=== PATIENT | male | born 1945 | race Caucasian/White ===

== ENCOUNTER 2018-02-25 10:54 | Emergency (ER) | payer MEDICARE, OTHER ==
[~2018-02-25] VITALS: Ht 188 cm; Wt 103.8 kg
[~2018-02-25 10:54] MED LIST: AMLODIPINE BESY10 MG PO; BAYER BACK & B1 EACH PO; HYDROCODON-ACE1 EA11 PO; IRON18 MG PO; LISINOPRIL10 MG PO; METFORMIN HCL500 M1 PO; METFORMIN HCL500 MG PO; MILK OF MA400 MG/5 M PO; MIRALAX17 GM PO; OXYCODONE HCL5 MG PO; PROTONIX40 MG PO; VITAMIN C500 M1 PO
--- OUTSIDE RECORDS SUMMARY | 2018-02-25 11:00 | XMS ---
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 E.D. VISIT COUNT (12 MO.) 3 [facility] [place] TOTAL 3 NOTE: Visits indicate total known visits. ED/UCC VISIT TRACKING (12 MO.) 02/25/2018 10:55 [facility] [place] [place] TYPE: Emergency COMPLAINT: - R KNEE PAIN,INJURY 02/08/2018 00:00 [facility] [place] TYPE: Emergency COMPLAINT: - INFECTION OF BACK 02/06/2018 13:36 [facility] [place] TYPE: Emergency COMPLAINT: - SOB DIAGNOSES: - Essential (primary) hypertension - Hypoxemia - long term care pharmacist (current) use of oral hypoglycemic drugs - Type 2 diabetes mellitus without complications - Other long term care administrator (current) drug therapy - Pneumonia, unspecified organism - Shortness of breath INPATIENT VISIT TRACKING (12 MO.) 02/06/2018 19:56 Marisa YOON TYPE: Intensive Care COMPLAINT: - PNEUMONIA 01/03/2018 17:31 Marisa YONO TYPE: Medical Surgical COMPLAINT: - POST OP DISCITIS L4-L5 11/07/2017 07:56 Marisa YOON TYPE: Intensive Care COMPLAINT: - LUMBAR STENOSIS WITH SPONDYLOSIS AND RADICULOPATHY [email or web address]
[2018-02-25] MEDS ORDERED: ULTRA-LIGHT RO1 EACH MISC (12:55)
[2018-04-09] MEDS ORDERED: MAPAP500 MG PO (11:16)
== END 2018-02-25 13:20 | disposition home or self-care (01) ==
LOC: ED 10:54
DX: S83.91XA Sprain of unspecified site of right knee, initial encounter (principal); L89.321 Pressure ulcer of left buttock, stage 1; L89.311 Pressure ulcer of right buttock, stage 1; I10 Essential (primary) hypertension; E11.9 Type 2 diabetes mellitus without complications; Z79.84 Long term (current) use of oral hypoglycemic drugs; Z79.899 Other long term (current) drug therapy; X58.XXXA Exposure to other specified factors, initial encounter
CPT/HCPCS: 73560; 99283

== ENCOUNTER 2018-04-12 10:55 | Day surgery (SDC) | payer MEDICARE, OTHER ==
[~2018-04-12] VITALS: Ht 188 cm; Wt 92.1 kg
[~2018-04-12 10:55] MED LIST changes: +MAPAP500 MG PO; +ULTRA-LIGHT RO1 EACH MISC
[2018-04-12] MEDS ORDERED: GABAPENTIN300 MG PO (12:39)
[2018-04-12] MEDS ORDERED: HYDROCODON-ACE1 EA11 PO (12:39)
[2018-04-12] MEDS ORDERED: SENNA LAX8.6 MG PO (12:39)
[2018-04-12] MEDS ORDERED: INDOMETHACIN50 MG PO (12:40)
--- NOTE | 2018-04-14 08:24 | OR ---
[facility] [address] [place], [place] [address] Signed DATE OF OPERATION: SURGEON: Pavna Orellana MD PREOPERATIVE DIAGNOSIS: Lateral meniscus tear, right knee. POSTOPERATIVE DIAGNOSES: 1. Lateral meniscus tear, right knee. 2. Chondromalacia patellae. PROCEDURE PERFORMED: Right knee arthroscopy with partial lateral meniscectomy and chondral debridement, patella. MANAGER BUSINESS CONTINUITY: None. ANESTHESIA: General. BLOOD LOSS: Minimal. TOURNIQUET TIME: Zero. BRIEF HISTORY: Cliff is a 72-year-old gentleman with a fairly normal looking x-rays and MRI showed a lateral meniscus tear. He had severe pain in his knee that did not allow him to bear weight and he was using crutches. Injection, bracing, and anti-inflammatories did not work and he wished to proceed with operative debridement. Risks and benefits of this were discussed with him and he elected to proceed. DESCRIPTION OF PROCEDURE: Once consent was obtained, he was taken to the operating room. After adequate anesthesia, he was placed on the operating table. All downside pressure points were well padded. The left leg was flexed, abducted, and externally rotated on a well-padded leg ash. The right was placed in a well-padded proximal thigh tourniquet, placed in leg ash. Portal sites were pre-injected using 0.25% Marcaine with epinephrine under an alcohol prep. The leg was then prepped and draped in the standard sterile fashion Electronically Signed By: PAVAN ORELLANA MD 04/14/18 0824 PATIENT NAME: CLIFF MERCHANT OPERATIVE REPORT DATE OF : 49 REPORT #: [id number] PHYSICIAN: PAVAN ORELLANA MD PCP: GREGORIA GUARDADO REPORT IS CONFIDENTIAL AND NOT TO BE RELEASED WITHOUT AUTHORIZATION [facility] [address] [place], [place] [address] Signed and a standard inferior lateral and superior lateral portals were placed and the scope was introduced into the knee. Arthroscopic findings: Cillvsl-ig-fbre synovitis was noted throughout the knee. There were multiple large chondral flaps on the patella that were inflamed. There were several small loose bodies floating around as well. The lateral gutters were clear. ACL was intact. The PCL was intact. Medial compartment showed diffuse grade 3 chondromalacia in the anterior half of the femoral condyle. Tibia showed grade 1 to 2 changes. Lateral compartment showed no chondral changes; however, there was a horizontal tear of the meniscus at the posterior lateral corner. Standard inferior lateral portal was made after localization using a spinal needle. The meniscus tear was debrided back to a stable rim anteriorly and posteriorly and smoothed using a shaver. All debris was evacuated. Attention was then turned to the chondral flaps on the patella, which I think were causing his locking symptoms that he was complaining about. The chondral surfaces were debrided and the grasper was used to remove loose bodies from the superior pouch. The loose flaps on the patella were grounded down to a stable rim. Once this was completed, the scope was withdrawn. Portals were closed with 3-0 nylon. The knee was injected with 60 mg of Toradol at the end of the case. The wounds were dressed with Adaptic, ABD, and Luis wrap after being closed with 3-0 nylon. The patient was taken to the recovery room in satisfactory condition. All sponge, needle, and instrument counts were correct. Pavan Orellana MD BA/YUE /[id number] Copies: ~ Electronically Signed By: PAVAN ORELLANA MD 04/14/18 0824 PATIENT NAME: CLIFF MERCHANT OPERATIVE REPORT DATE OF : 49 REPORT #: [id number] PHYSICIAN: PAVAN ORELLANA MD PCP: GREGORIA GUARDADO PAC REPORT IS CONFIDENTIAL AND NOT TO BE RELEASED WITHOUT AUTHORIZATION
== END 2018-04-12 15:10 | disposition home or self-care (01) ==
LOC: DS 10:55 → OPS 10:55
PROVIDERS: Specialist
PROC: 0SBC4ZZ Excision of Right Knee Joint, Percutaneous Endoscopic Approach (ICD-10-PCS; principal; 2018-04-12 12:00)
DX: S83.281A Other tear of lateral meniscus, current injury, right knee, initial encounter (principal); M17.11 Unilateral primary osteoarthritis, right knee; M22.41 Chondromalacia patellae, right knee; M65.861 Other synovitis and tenosynovitis, right lower leg; E11.9 Type 2 diabetes mellitus without complications; I10 Essential (primary) hypertension; K21.9 Gastro-esophageal reflux disease without esophagitis; Z79.899 Other long term (current) drug therapy; Z79.84 Long term (current) use of oral hypoglycemic drugs
CPT/HCPCS: 01400; J0690; J1100; J1885; J2250; J2405; J2704; J2765; J3010; J7120

== ENCOUNTER 2020-05-07 18:56 | Emergency (ER) | payer MEDICARE ==
[~2020-05-07] VITALS: Ht 188 cm; Wt 109.8 kg
[~2020-05-07 18:56] MED LIST changes: +ASPIRIN EC325 MG PO; +DICLOFENAC SODI75 MG PO; +GABAPENTIN300 MG PO; +INDOMETHACIN50 MG PO; +MULTI VITAMIN1 EACH PO; +OSTEO BI-FLEX1 EAC2 PO; +SENNA LAX8.6 MG PO; +TYLENOL EXTRA500 MG PO; +VIT C-ROSE HIP500 MG PO; +XARELTO10 MG PO
== END 2020-05-07 20:22 | disposition home or self-care (01) ==
LOC: ED 18:56
DX: L76.22 Postprocedural hemorrhage of skin and subcutaneous tissue following other procedure (principal); I10 Essential (primary) hypertension; E11.9 Type 2 diabetes mellitus without complications; Z88.1 Allergy status to other antibiotic agents; Z79.899 Other long term (current) drug therapy; Z79.82 Long term (current) use of aspirin
CPT/HCPCS: 80053; 85025; 85610; 85730; 99283

== ENCOUNTER 2020-05-14 09:59 | Inpatient (IN) | payer MEDICARE, OTHER ==
[~2020-05-14] VITALS: Ht 188 cm; Wt 99.8 kg
--- NOTE | ~2020-05-14 | DS ---
[facility] [address] [place], [place] [address] Draft ADMISSION DATE: 05/14/2020 DISCHARGE DATE: 05/26/2020 ADMISSION DIAGNOSIS: Infected left total hip. POSTOPERATIVE DIAGNOSIS: Infected left total hip. PROCEDURE PERFORMED: 1. Irrigation and debridement with exchange of polyethylene, left total hip. 2. Placement of PICC line. BRIEF HISTORY: Mr. Merchant is a 74-year-old gentleman about a month out from his hip when he started having bleeding and drainage from his wound. This was treated nonoperatively initially, however, he continued to worsen and he showed up to the emergency room and ultimately was taken to the operating room for his hip and exchange the poly. Deep cultures did show MSSA. Blood cultures grew MSSA, however, one did grow Acinetobacter. I contacted with ID and he considered this to be a contaminant. He felt that we would treat the MSSA only. The decision was made to go ahead with IV antibiotics, ceftriaxone and rifampin. The patient will do a phone consult with Infectious Disease via video. In the meantime, he continued to have mild wound drainage and this was treated with spica dressings and PRAVIN wound VAC dressing. The drainage had decreased substantially with physical therapy, and Lasix. His leg swelling went completely away. His activity was cut to allow for the drainage to seal up and he was felt to be stable for discharge to home and follow up in my office tomorrow when he comes in for his antibiotics. Should any problems in the interim obviously he will give us a call. We will see him back tomorrow. Pavan Orellana MD BA/MODL /[id number] PATIENT NAME: CLIFF MERCHANT DISCHARGE SUMMARY DATE OF : 49 REPORT #: [id number] PHYSICIAN: PAVAN ORELLANA MD PCP: GREGORIA GUARDADO REPORT IS CONFIDENTIAL AND NOT TO BE RELEASED WITHOUT AUTHORIZATION [address] [address] Draft Copies: ~ PATIENT NAME: CLIFF MERCHANT DISCHARGE SUMMARY DATE OF : 49 REPORT #: [id number] PHYSICIAN: PAVAN ORELLANA MD PCP: GREGORIA GUARDADO REPORT IS CONFIDENTIAL AND NOT TO BE RELEASED WITHOUT AUTHORIZATION
--- OUTSIDE RECORDS SUMMARY | 2020-05-14 10:02 | XMS ---
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 Prasanna VISIT COUNT (12 MO.) 2 [facility] TOTAL 2 NOTE: Visits indicate total known visits. ED/UCC VISIT TRACKING (12 MO.) 05/14/2020 10:00 [facility] [place] TYPE: Emergency COMPLAINT: - POST SURGICAL ISSUE 05/07/2020 18:58 [facility] [place] [place] TYPE: Emergency COMPLAINT: - HIP BLEEDING AT OP INCISION DIAGNOSES: - Allergy status to other antibiotic agents - intermediate card tender (current) use of aspirin - Other keno terminal operator (current) drug therapy - Postprocedural hemorrhage of skin and subcutaneous tissue following other procedure - Type 2 diabetes mellitus without complications - Essential (primary) hypertension INPATIENT VISIT TRACKING (12 MO.) No inpatient visits to display in this time frame [id number]
--- NOTE | 2020-05-14 14:13 | NUR ---
16 TURKMEN ROMANO TEMP PROBE PLACED BY LEO NINA RN. 10 ML OF SALINE PLACED. PT HAD NO BLOOD AT THE MEATUS. PT TOLERATED THE PROCEDURE WELL. STERILE TECHNIQUE MAINTAINED.
--- NOTE | 2020-05-14 14:23 | NUR ---
05/14/20 1423 Cinthia Vásquez 1358 PATIENT ARRIVES TO PACU MOVING ALL EXTREMITIES, BUT CONFUSED. RESP INCREASED AND SLIGHTLY LABORED. AUDIBLE COARSE LUNG SOUNDS. TEMP 103.8 TEMP ON ARRIVAL TEMPORAL. OR REPORTS PATIENT IS NOT AND THAT PATIENT HAS BEEN MORE CONFUSED OVER THE LAST SEVERAL DAYS. 1400 DR BATES AND CLIFF RYAN PLASMA CUTTING MACHINE OPERATOR AT BEDSIDE. AWARE OF PATIENT TEMP. 1410 #18 GUAGE LEFT FOREARM PLACED. LAB AT BESIDE WITH BLOOD CULTURES AND LACTIC SENT WITH LAB. 1415 PATIENT ALERT TO TO SELF AND PLACE, UNABLE TO REPORT CURRENT DATE. RESP EVEN AND UNLABORED, MASK CONTINUES AT 6 LITERS. DENIES PAIN OR NAUSEA. SKIN IS STILL VERY HOT TOO TOUCH. TEMPORAL TEMP IS 103.8, CORE ROMANO TEMP IS 101.8.
--- NOTE | 2020-05-14 14:45 | EKG ---
[facility] [address] [facility] [place] [address] Signed Sinus tachycardia Right bundle branch block Abnormal ECG When compared with ECG of 25-MAR-2020 09:44, [place] interval has decreased Confirmed by KACY JAIMES MD ([id number]) on 05/14/2020 2:45:02 PM Electronically Signed By: KACY JAIMES MD 05/14/20 1445 PATIENT NAME: MAYURZULAY Electrocardiogram DATE OF : 49 PHYSICIAN: KACY JAIMES MD REPORT #: [id number] REPORT IS CONFIDENTIAL AND NOT TO BE RELEASED WITHOUT AUTHORIZATION
--- NOTE | 2020-05-14 17:04 | NUR ---
VASCULAR ACCESS NOTE: 4FR DUAL LUMEN PICC LINE PLACED IN RIGHT BASILIC. 55CM LINE, TRIMMED TO 52CM. 0CM EXPOSED. ARM CIRC 31.5CM.
--- NOTE | 2020-05-14 17:43 | NUR ---
PICC INSERTION NOTE: ASKED BY DR PEREZ TO EVALUATE PATIENT FOR POTENTIAL PICC LINEPLACEMENT DUE TO LONGTERM ABX NEEDED. AFTER REVIEWING THE CHART AND INTERVIEWING THE PATIENT/, NO ABSOLUTE CONTRAINDICATIONS WERE IDENTIFIED. PATIENT WAS ABLE TO SIGN CONSENT FORM AND ASKS QUESTIONS APPROPRIATELY PATIENT'S RIGHT ARM WAS EVALUATED USING THE SITE RITE U/S. PATIENT'S BASILIC AND BRACHIAL VEINS WERE IDENTIFIED AND THE BASILIC LOOKED TO BE A GOOD CANDIDATE. A 4 FR PICC, WAS MEASURED TO TAKE UP APPROX 30% OF VEIN, SEE PROGRESS NOTE IN PATIENT'S CHART FOR IMAGE. CDC RECOMMENDED GUIDELINES FOR STERILE PREP OF INSERTION SITE WERE THEN FOLLOWED. BASILIC VEIN WAS ACCESSED UPON THE FIRST ATTEMPT. BRISK, DARK, NONPULSATILE BLOOD WAS RETURNED. GUIDEWIRE THREADED EASILTY INTO VEINS, WELL INTRODUCER, AND PICC LINE. 0 ATTEMPTS WERE NEEDED TO ADJUST PICC, WHICH WAS PLACED USING SHERLOCK TIP GUIDE/MAGNET AND ECG MONITORING. STERILE DRESSING APPLIED AND CHEST XRAY TAKEN. TIP AT RANI. AWAITING OFFICAL RADIOLOGIST READ ON CHEST XRAY. REPORT TO FILIBERTO SAMSON. PATIENT'S GIVEN EDUCATION MATERIAL ON PICC. PATIENT AND ENCOURAGED TO ASK QUESTIONS REGARDING PICC NEEDED.
--- NOTE | 2020-05-14 18:48 | NUR ---
DR. JAIMES CALLED AND UPDATED ON PT'S LOW URINE OUTPUT. WILL CONTINUE TO MONITOR.
--- NOTE | 2020-05-14 18:59 | NUR ---
PT TO CCU AT APPROXIMATLY 1525, FULL CARE TURNED OVER TO THIS RN AT 1530, BEDSIDE REPORT GIVEN BY NEDA BALLISTICS EXPERT FORENSIC. PT IS ALERT AND ORIENTED X4, HOWEVER SLIGHTLY DROWSY POST-OP. PT SPOUSE IS AT THE BEDSIDE. NEDA RN ABLE TO PLACE A DOUBLE LUMIN PICC LINE IN PT RT ARM, CHEST X-RAY DONE IN THE ROOM TO VERIVFY PLACEMENT. ONCE COMPLETED PT TAKEN DOWN TO IMAGING FOR ABD CT, AND PELVIC X-RAY. PT ELVIS THIS WELL, SLIGHTLY DROWSY, VITALS ALL WNL. PT THEN BACK TO CCU. IV ABX STARTED, PO MEDS GIVEN, AND 1 UNIT INSULIN FOR BG 166. PT'S HAS BEEN AT THE BEDSIDE THE WHOLE TIME. PT REFUSES PAIN MEDICATION DURING THIS ENTIRE TIME, STATES "NAH, I'M DOING FINE". CRYO CUFF IN PLACE ON THE LEFT HIP. SCANT DRAINAGE NOTED ON SAMREEN WRAP OVER LEFT INCISION. SCD'S IN PLACE. PT ELVIS SIPS OF WATER.
--- NOTE | 2020-05-14 19:30 | NUR ---
REPORT RECEIVED FROM DAY SHIFT RNS. IN TO BEDSIDE TO CHECK ON PT, PT AWAKENS EASILY AND DENIES NEEDS AT THIS TIME. KRYO CUFF IN PLACE, PICA IN PLACE, IVF INFUSING.
--- NOTE | 2020-05-14 19:30 | NUR ---
REPORT RECEIVED FROM DAY SHIFT RNS. IN TO BEDSIDE TO CHECK ON PT, PT AWAKENS EASILY AND DENIES NEEDS AT THIS TIME. KRYO CUFF IN PLACE, PRAVIN IN PLACE, IVF INFUSING.
--- NOTE | 2020-05-14 20:01 | NUR ---
PT RESTING WITH EYES CLOSED, RESP EVEN UNLABORED, RR 20 SPO2 98% WITH 2L/OXYMASK IN PLACE. CURRENT TEMP PER ROMANO PROBE IS 100.7
--- NOTE | 2020-05-14 21:28 | NUR ---
TEMP HAS BEEN TRENDING UP, NOW 101.3 PER ROMANO TEMP PROBE. PRN TYLENOL GIVEN.
--- NOTE | 2020-05-15 01:05 | NUR ---
CALL TO DR JAIMES TO UPDATE REGARDING DROPPING URINE OUTPUT, 37ML LAST HOUR. ORDER GIVEN FOR 500ML LR BOLUS AND TO INCREASE IVF TO 150/HR. BOLUS STARTED PT REMAINS SLEEPING WITH RESTING HR 100'S.
--- NOTE | 2020-05-15 02:39 | NUR ---
TEMP TRENDING UP PER ROMANO TEMP PROBE, 102.1 AND 99.6 AXILLARY, PT DOES FEEL WARM, HR UP TO 120'S WITH MINIMAL MOVEMENT IN BED. TYLENOL PRN GIVEN. PT DENIES PAIN OR FEELING SOB AT THIS TIME. PT HAVING OCCASIONAL PRODUCTIVE COUGH. SCHEDULED ULTRAM GIVEN ALSO.
--- NOTE | 2020-05-15 02:50 | NUR ---
PRAVIN DRESSING SATURATED WITH DARK RED DRAINAGE AND MACHINE NOT SUCTIONING, WITH DRESSING FULL INDICATOR LIGHT FLASHING. DRESSING OVER HEMOVAC ALSO SAT. DRESSING REMOVED, INCISION WITH STITCHES INTACT WITH FLUID LEAKING OUT FROM INCISION. NEW PRAVIN DRESSING APPLIED AND MACHINE RESTARTED WITH NO PROBLEMS. PT HAD INCREASED HR DURING THIS TIME, 120'S WHILE HE WAS AWAKE AND TURNED TO HIS SIDE. URINE OUTPUT PICKED UP TO 75ML FOR THE LAST HOUR. TEMP PER ROMANO PROBE 103 AND ORAL TEMP TAKEN ALSO 103.
--- NOTE | 2020-05-15 04:10 | NUR ---
ASSESSMENT DONE, PT DENIES PAIN OR NEEDS, TAKING SIPS OF WATER. OCCASIONAL PRODUCTIVE COUGH. LUNGS MOSTLY CLEAR WITH FEW RHONCHI HEARD ON RIGHT SIDE ALSO AUDIBLE WHEEZE HEARD WHEN PTS HEARTRATE WAS IN 120'S. CMS INTACT TO LLE. ORAL TEMP NOW 101.2 AND ROMANO TEMP REMAINS 103, ICE PACKS AND COOL RAG TO FOREHEAD. URINE OUTPUT DOWN THIS HOUR STARTING VANCO INFUSION WHICH WILL BE ADDITIONAL FLUID AND PT JUST DRANK SOME WATER SO CONT TO MONITOR.
--- NOTE | 2020-05-15 06:30 | NUR ---
PT AWAKE IN BED, HELPED TO REPOSITION. PT STATES HE OCCASIONALLY HAS A PAIN IN HIS LEG. FRANCISCO ULTRAM GIVEN.
--- NOTE | 2020-05-15 07:05 | NUR ---
PT IN BED WITH EYES CLOSED, HR SUDDENLY WENT FROM 120 TO 200 FOR APPROX 18 SECONDS. IN TO CHECK ON PT, PT DENIES FEELING ANYTHING DIFFERENT, DENIES PAIN, SOB. DR JAIMES NOTIFIED. ORDER GIVEN FOR 5MG IV LOPRESSOR Q6H, FIRST DOSE GIVEN.
--- NOTE | 2020-05-15 07:15 | NUR ---
Patient HR decreases from 200-212 to the 100-110's. Patient continues to deny pain or SOB. Patient reports feeling chilly, forehead and chest warm to the touch. Parker temp of 101.9-102.3 at this time, prn tylenol given. Will continue to monitor.
--- NOTE | 2020-05-15 07:45 | NUR ---
Dr. Orellana in room to assess patient and discuss POC. Orders acknowledged to type and cross patient, administer 2 units PRBCs, and keep ahead by 2 units of PRBCs in lab.
--- NOTE | 2020-05-15 07:57 | OR ---
[facility] [address] [place], [place] [address] Signed DATE OF OPERATION: 05/14/2020 SURGEON: Pavan Orellana MD PREOPERATIVE DIAGNOSIS: Wound bleeding, left total hip replacement. POSTOPERATIVE DIAGNOSIS: Wound bleeding, left total hip replacement. PROCEDURES PERFORMED: Irrigation and debridement, left total hip replacement with exchange of poly and femoral head. ASSOCIATE PROFESSOR OF CHURCH MUSIC: Gillian Lobo PA-C. ANESTHESIA: General. BLOOD LOSS: 125 mL. IV FLUIDS: 2000. CULTURES: Deep tissue was sent for culture and deep wound cultures were taken. DRAINS: Two 10 mm drains were placed. IMPLANTS: Poly was exchanged as well as a -2.5 ceramic head. BRIEF HISTORY: Cliff is a 74-year-old gentleman who was doing well after his hip replacement, started noticing a little bit of drainage from the inferior wound about a week ago. Pressure dressings were applied and initially this healed up, however, continued to bleed and he returned to the ER today with bleeding. We were initially planning to take him back to Electronically Signed By: PAVAN ORELLANA MD 05/15/20 0757 PATIENT NAME: CLIFF MERCHANT OPERATIVE REPORT DATE OF : 49 REPORT #: [id number] PHYSICIAN: PAVAN ORELLANA MD PCP: GREGORIA GUARDADO PAC REPORT IS CONFIDENTIAL AND NOT TO BE RELEASED WITHOUT AUTHORIZATION [address] [place] [address] Signed the OR for I and D on Sunday, however, we elected to go ahead and do it today. Risks and benefits were discussed with he and his , they elected to proceed. DESCRIPTION OF PROCEDURE: Once consent was obtained, he was taken to the operating room. After adequate anesthesia he was placed on the operating table in the right lateral decubitus position. All downside pressure points well padded. An axillary roll was placed. The hip was then prepped and draped in a standard sterile fashion. The hip was opened longitudinally over the old incision and extended a little bit distally. This was taken through the skin and IT band. The fascial closure was noted to be disrupted inferiorly. The fascia was opened longitudinally all the way to the top. The wound was noted to have extensive blood clot inferiorly and anteriorly with no active bleeding currently happening. There was no evidence of any purulent material and no cellulitis. The hip was dislocated after removing the periacetabular soft tissue. The femoral head was taken off and the acetabular liner was removed. The wound was then copiously irrigated and pulse lavaged using 3 L of normal saline. All exposed metal components were then cleaned meticulously using hydrogen peroxide soaked sponges. The wound was then irrigated with dilute iodine and allowed to sit for 10 minutes. This was then once again irrigated using 3 L of normal saline. The wound was then inspected thoroughly and no significant bleeding was noted. There was a little bit of oozing from the subcutaneous tissue and the fascia layer. The remaining was quite dry. The acetabular liner was replaced and impacted until it was well-seated. The femoral head was replaced. The hip was reduced, taken through range of motion and found to be stable. The deep fascia layer was then closed using #1 PDS. We placed a 10-Chadian drain in the intracapsular. After the fascial layer was closed the IT band was closed longitudinally after placing another 10-Chadian drain below that. Care was taken not to incorporate the drain in the sutures. The subcutaneous tissue was closed with #0 Stratafix, and the skin with 2-0 nylon. The wound was dressed with a PRAVIN wound VAC dressing. He was awakened and taken to the recovery room in satisfactory condition. All sponge, needle, and instrument counts were correct. Pavan Orellana MD BA/MODL /[id number] Electronically Signed By: PAVAN ORELLANA MD 05/15/20 0757 PATIENT NAME: CLIFF MERCHANT OPERATIVE REPORT DATE OF : 49 REPORT #: [id number] PHYSICIAN: PAVAN ORELLANA MD PCP: GREGORIA GUARDADO [facility] REPORT IS CONFIDENTIAL AND NOT TO BE RELEASED WITHOUT AUTHORIZATION [facility] [address] [place], [place] [address], [place] [address] Signed Copies: ~ Electronically Signed By: PAVAN ORELLANA MD 05/15/20 0757 PATIENT NAME: CLIFF MERCHANT OPERATIVE REPORT DATE OF : 49 REPORT #: [id number] PHYSICIAN: PAVAN ORELLANA MD PCP: GREGORIA GUARDADO PAC REPORT IS CONFIDENTIAL AND NOT TO BE RELEASED WITHOUT AUTHORIZATION
--- NOTE | 2020-05-15 08:00 | NUR ---
Patient awake and alert, laying in bed. Fluids infusing at 150 mls/hr. Patient reports pain of 6/10 in left hip, which is tolerable according to patient. Vital signs taken, assessment complete. PRAVIN dressing in place with one dime-sized spot of blood noted. Hemovac in place, no drainage noted at this time. Blood clot noted in the tubing of hemovac, Dr. Orellana requests hemovac placed to low continuous wall suction. Above the PRAVIN dressing on the left hip is an allevyn pad with two bio-patches underneath. Approximately 50% of the allevyn pad is saturated with blood. Will continue to monitor. Audible wheezes are heard, patient appears to have slightly labored breathing. No accessory muscles noted, patient denies feeling SOB. 2L oxymask are in place. Ice pack and cryocuff applied to left hip. Jaswinder hose and SCDs in place. Patient denies further needs, call light within reach.
--- NOTE | 2020-05-15 08:31 | NUR ---
Patient sitting up in bed at 45 degree angle, eating breakfast assisted by nursing staff. BG of 126, no insulin given. Patient HR in the 110's with the activity of eating meal. Patient oriented to self, location, event, and date. This RN to remain in room to continue assessment.
--- NOTE | 2020-05-15 09:03 | NUR ---
Patient sitting up in bed, HR in the 110's. HR increases to 190's for approximately 5 seconds, then decreases back down to 110's. IV magnesium hung and infusing.
--- NOTE | 2020-05-15 09:30 | NUR ---
Dr. Trivedi in room to assess patient and discuss POC
--- NOTE | 2020-05-15 10:27 | NUR ---
Critical lab value called, gram positive cocci in clusters in aerobic bottle. Dr. Trivedi notified, orders acknowledged for a repeat set of blood cultures to be drawn.
--- NOTE | 2020-05-15 11:14 | NUR ---
Patient laying in bed sleeping, rouses easily to voice. Respirations even and unlabored. First unit of PRBCs administered, vital signs taken. Patient denies pain, SOB, or headache. Patient educated on importance of alerting nursing staff to changes in symptoms with administration of blood, patient agreeable. Patient falls asleep easily. sitting in chair at bedside. This RN to remain in room during initial 15 minutes of blood administration.
--- NOTE | 2020-05-15 12:53 | NUR ---
First unit of PRBCs finished infusing, post-infusion vitals taken. Patient denies pain, chills, SOB, or headache. Second unit of PRBCs administration begun. This RN in room during initial 15 minutes of infusion.
--- NOTE | 2020-05-15 14:00 | NUR ---
HR in the 100-110's. IV lopressor given. HR decreases to the 90's after administration.
--- NOTE | 2020-05-15 14:35 | NUR ---
Second unit of PRBCs finished infusing. Post-infusion set of vitals taken. Patient denies pain, SOB, chills, or headache. in room sitting in chair at bedside. PRAVIN dressing remains unchanged from previous assessment. HR in the 90's. Patient denies further needs, call light within reach.
--- NOTE | 2020-05-15 15:30 | NUR ---
Patient sleeping in bed, respirations even and unlabored. SpO2 of 100% on 2LNC, oxygen titrated to room air. SpO2 now ranging from 90-95%. Call light within reach.
--- NOTE | 2020-05-15 16:00 | NUR ---
PT in room working with patient. Nursing staff and PT assist patient up to chair with a FWW. Patient able to stand and pivot to chair. Reports pain of 6/10 in left hip after activity. Patient appears SOB after activity, after several minutes of sitting in the chair patient's breathing becomes unlabored. SpO2 of 90-94% on RA. Patient uses IS. HR in the 90-100's. 1630 - IV abx hung and infusing. sitting in room visiting with patient. Denies further needs, call light within reach.
--- NOTE | 2020-05-15 17:12 | NUR ---
Patient sitting up in chair visiting with . IV abx infusing. Ice pack in place on left hip. Call light within reach.
--- NOTE | 2020-05-15 18:30 | NUR ---
Patient returned to bed from chair with nursing staff assist and FWW. Patient able to stand and pivot to the bed. Dressing change completed due to previous dressings being saturated with blood. New PRAVIN dressing in place. Patient reports pain of 6/10 in left hip after activity, scheduled pain medication given at 1800. Hemovac in place, no drainage noted. Called Dr. Orellana to update him on dressing change and hemovac output.
--- NOTE | 2020-05-15 20:11 | NUR ---
PT SLEEPING. COLOR PINK RESP REG.
--- NOTE | 2020-05-15 21:00 | NUR ---
AWAKE, ALERT AND ORIENTED AT THIS TIME. IS MILDLY HARD OF HEARING. HR 95-98. BREATH TONES ESS CLEAR, SL UPPER AIRWAY WHEEZE IS OCC NOTED. PT RATE PAIN 5/10. PRAVIN DRSG NOTED TO HAVE LEAK, REINFORCED WITH OPSITE. SMALL AMT BLOODY DRAINAGE NOTED NEAR BOTTOM OF INCISION. CRYO CUFF LAID OVER WOUND. URINE OUTPUT IS IMPROVING.
--- NOTE | 2020-05-15 22:15 | NUR ---
PT SLEEPING OFF AND ON. PT IS LOOKING FOR HIS IPAD, THOUGHT HE HAD IT EARLIER. THIS NURSE DID SEE HIM USING HIS CELL PHONE BUT NOT IPAD FOUND.
--- NOTE | 2020-05-16 00:22 | NUR ---
PT CONT TO SLEEP OFF AND ON. PRAVIN DRSG HAS SEAL. BREATH TONES L HAVE EXP WHEEZE/RHONCHI. HAD PT USE IS AND COUGH. TURNED TO L SIDE. PT ELIVS WELL.
--- NOTE | 2020-05-16 02:27 | NUR ---
NO CHANGE IN DRSG. PAIN CONT 5/10, GIVEN SCHEDULED TRAMADOL. REPOSITIONED.
--- NOTE | 2020-05-16 04:26 | NUR ---
PT AWAKE. PAIN CONTROL SAME. REPOSITIONED AND EVLIS WELL. ALLEVYN DRSG COVERING DRAIN SITES HAS MOD AMT SEROSAN DRAINAGE AND ABD CHANGED. C/O UPSET STOMACH REQUESTING ANTACID, GIVEN MAALOX.
--- NOTE | 2020-05-16 06:13 | NUR ---
PT HAS BEEN AWAKE PAST 2 HOURS. STATES MAALOX DID HELP WITH UPSET STOMACH. L HIP DRAIN DRSG CHANGED WAS SATURATED. NOW COVERED WITH 4/4'S AND ABD. IS MOVING SELF IN BED. CATH CARE DONE.
--- NOTE | 2020-05-16 07:15 | NUR ---
Report received, orders acknowledged. Patient sleeping in bed, respirations even and unlabored. Call light within reach.
--- NOTE | 2020-05-16 08:00 | NUR ---
Patient laying in bed, awake and alert on cell phone. Patient reports pain of 4/10 in left hip, states "I feel much better today, I'm ready to sit up in the chair." Vital signs taken, assessment complete. Patient up to chair with FWW and SBA. Patient states "Wow, this feels easier than it did yesterday." Patient does not appear SOB with activity. AM medications given, water refreshed. Parker cath emptied of yellow urine. Linens changed, new gown provided. Patient uses warm cloth to wash face. Denies further needs, call light within reach.
--- NOTE | 2020-05-16 08:30 | NUR ---
GARRETT Lobo in room to assess patient and discuss POC
--- NOTE | 2020-05-16 10:06 | NUR ---
Patient sleeping in chair on RA. Patient rouses to voice easily. Scheduled pain medication given. Patient reports pain of 4/10 in left hip, which is tolerable. Denies further needs, call light within reach.
--- NOTE | 2020-05-16 11:15 | NUR ---
PT working with patient, ambulating hallway with FWW and 1PA. HR in the 90's to low 100's during activity. Patient denies increased pain in left hip with ambulation (pain of 4-5/10) or SOB. Patient returns to bed and is assisted to comfortable position with nursing staff. Patient appears SOB after reaching the bed, audible expiratory wheezes heard. After resting for a minute, patient no longer appears SOB and expiratory wheezes are not heard. Water refreshed, denies needs. Call light within reach.
--- NOTE | 2020-05-16 12:00 | NUR ---
Patient sitting up in bed. Vital signs taken, assessment complete. Medications given. PRAVIN dressing reinforced. New gauze and ABD placed over the hemovac incision sites. Lunch delivered, no further needs. Call light within reach.
--- NOTE | 2020-05-16 13:59 | NUR ---
Patient sleeping in bed, respirations even and unlabored. HR in the 80's. Call light within reach.
--- NOTE | 2020-05-16 15:09 | NUR ---
Parker catheter D/C'd. Patient up to toilet with FWW and 1PA. Large liquid BM produced and unmeasured void. Patient returns to chair. Water refreshed. Patient's in room visiting. Denies further needs, call light within reach.
--- NOTE | 2020-05-16 16:56 | NUR ---
Patient sleeping in chair, respirations even and unlabored. sitting in room with patient. Call light within reach.
--- NOTE | 2020-05-16 20:20 | NUR ---
PT SITTING IN CHAIR, IS ALERT AND ORIENTED X 3. IS COMFORTABLE. PRAVIN DRSG HAS SEAL. L HIP CONT TO HAVE SEROSAN DRAINAGE. LUIS HOSE IN PLACE. SCD OFF WHILE UP. PT INFORMED OF IMPENDING TRANSFER TO MED SURGE FLOOR.
--- NOTE | 2020-05-16 21:10 | NUR ---
pt TRANSFERRED FROM [facility]U TO [facility] ROOM 114 BY CHAIR. pt REQUESTING TO SIT UP IN CHAIR AT THIS TIME. ORIENATION TO ROOM PROVIDED. CALL LIGHT IN REACH.
--- NOTE | 2020-05-16 21:15 | NUR ---
PT TRANSFERED TO RM 114 PER CHAIR.
--- NOTE | 2020-05-16 21:55 | NUR ---
PT UP IN CHAIR, LEGS ELEVATED, ROOM AIR, NO C/O PAIN, TOLERATIANG FLUIDS WELL. L HIP PRAVIN DRESSING SATURATED WITH OLD DRAINAGE, OPSITE OVER IT. HEMOVAC IN PLACE, EDEMA TO AREA, CRYOCUFF AT BEDSIDE. GOOD CMS. 1PA/FWW. NO C/O PAIN OR EMESIS. R ARM PICC LINE INPLACE. ALERT AND ORIENTED, WATCHING TV AND READING A BOOK. FLUIDS AT BEDSIDE
--- NOTE | 2020-05-16 22:25 | NUR ---
ANSWERED CALL LIGHT FROM PRIMARY RN PACO NEEDS HELP. THIS TECHNOLOGY OFFICER WENT INTO THE ROOM. SEEN PATIENT WAS UP WITH WALKER. RN STATED PATIENT IS 1 PA TO THE BATHROOM AND WENT OUT OF THE ROOM. WHILE THIS TECHNOLOGY OFFICER WAS IN THE BATHROOM TO PUT A HAT IN TOILET, A NOISE WAS HEARD OF THE WALKER MOVING AND PATIENT WAS SEEN UNBALANCED. THIS TECHNOLOGY OFFICER RAN TO HELP PATIENT AVOID FALLING. PATIENT ABLE TO GET TO CHAIR. THIS TECHNOLOGY OFFICER CALLED FOR HELP, PRIMARY RN TO ROOM.
--- NOTE | 2020-05-16 22:31 | NUR ---
PT TRYING TO GET UP FROM CHAIR, LOST BALANCE AND SAT BACK INTO CHAIR, HEMOVAC TUBING GOT COUGHT BETWEEN HIS HANDS AND WAS ACCIDENTALLY PULLED OFF. DR BATES NOTIFIED " OK TO LEAVE IT OFF, REINFORCE DRESSING WITH ABD DRESSING, WILL REASSESS IN AM."
--- NOTE | 2020-05-16 22:50 | NUR ---
Up to bsc 3PA/FWW, voided and had a loose semiliquid bm, skin care done. L hip hemovac tubing accidentally removed by pt. skin care done, creamy scant amount of drainage noted at former hemovac insertion site. cleansed with dry gauze, clean gauze and abd pads applied, spica dressing to area. rosa dressing patent, flashing light is yellow. pt back to bed, slow to follow instructions. back to bed. priyanka hose changed, scds and clean tedhose, socks done. Bed alarm on. pt helped. slow to follow instructions from begining to edn, aware of date, month and situation
--- NOTE | 2020-05-16 23:21 | NUR ---
IN BED, HOB ELEVATED, RESTING, CALM, EYES CLOSED, NO DISTRESS, L HIP PRAVIN DRESSING AND ABD/SPICO COVRED DRESSING W/O CHAGES, CLEAN LUIS HOSE AND SCDS IN PLACE, CALL LIGHT AND FLUIDS AT BEDSIDE, RECEIVED SCHEDULED ULTRAM EARLIER. NO C/O PAIN. BED ALARM ON
--- NOTE | 2020-05-16 23:27 | NUR ---
GOWN, COMPRESSION SOCKS, NON-SKID SOCKS CHANGED. SCD'S, HEEL PROTECTOR AND CRYO CUFF ARE BACK ON. BED ALARM ON FOR SAFETY. CALL LIGHT WITHIN REACH.
--- NOTE | 2020-05-17 02:33 | NUR ---
pt awakes easily, medicated with scheduled ultram 6/10 l hip pain. L hip rosa dressing with green flashing light at this time, old drainage. abd/old hemovac site intact, no new drainage, spica dressing in place, scds, heel protectors priyanka hose and cryocuff in place. R HL PICC line, tolerating liquids well, uses urinal, medium dark yellow urine. on room air, denies CP or sob
--- NOTE | 2020-05-17 05:39 | NUR ---
PT SLEPT MOST OF THIS SHIFT, AWAKES EASILY. EARLIER ON SHIFT WHEN STANDING UP FELL BACKWARDS ONTO RECLINER CHAIR AND ACCIDENTALLY PULLED HEMOVAC TUBING OFF. SITE WITH CREAMY SEROUSANGUINEOUS DRAINAGE. DR BATES NOTIFIED AND AREA REINFORCED WITH GAUZE/ABDS AND SPICA DRESSING. OLD PRAVIN DRESSING FLASHES BETWEEN GREEN AND YELLOW LIGHT INTERMITENT. OLD PRAVIN DRESSING SATURATED WITH OLD DRAINAGE, OPSITE IN PLACE. NO NEW DRAINAGE NOTED SINCE ABD DRESSINGS APPLIED. EDEMA TO L HIP PRESENT. TAKES SCHEDULED ULTRAM AND TYLENOL, EFFECTIVE FOR PAIN CONTROL. SCDS, LUIS HOSE AND HEEL PROTECTORS IN PLACE. GOOD CMS. COOPERATIVE, UP TO BSC, WITH 2PA/FWW, GAIT UNSTEADY AND WEAK AT THAT TIME. WAS UP IN THE CHAIR AND TOLERATED WELL. HAD A BM AND VOIDING QS. USES URINAL. TOLERATING FLUIDS WELL. RAC PICC ELAINE PATENT, WILL GET VANCOMYCIN THROUGH LATER TODAY. NO C/O ADVERSE REACTION TO IV ABX. ON ROOM AIR
--- NOTE | 2020-05-17 08:30 | NUR ---
THIS RN TO ASSUME CARE OF PT
--- NOTE | 2020-05-17 09:25 | NUR ---
THIS RN IN PTS ROOM. PT UP TO CHAIR THIS AM. PT HAS SPIKA DRESSING IN PLACE WITH NOTED OLD SHADOWING ON ABDS. PT NOTES THAT PAIN IS 4/10 BUT IT TOLERABLE. PT DID REQUEST TO NOT TAKE BOWEL MEDS DUE TO FEELING "MORE REGULAR"
--- NOTE | 2020-05-17 10:05 | NUR ---
PATIENT SITTING UP IN CHAIR, VISITOR IN ROOM. VITALS AND I&O'S CHARTED. LINENS CHANGED. CALL LIGHT IN REACH. NO FURTHER NEEDS AT THIS TIME.
--- NOTE | 2020-05-17 12:00 | NUR ---
PTS BLOOD SUGAR WTIHIN NORMAL LIMINTS. NO INSULIN GIVEN
--- NOTE | 2020-05-17 13:11 | NUR ---
PT ALERT, ORIENTED AND SITTING IN CHAIR VISITING WITH FAMILY. PT INFORMED ME WHAT HAS BEEN DONE WITH HIS HIP, AND THAT HE IS ON ANTIBIOTIC REGIMEN AT THE MOMENT. NO REQUESTS, ALL QUESTIONS ASKED ANWERED. GAVE BLESSING, WILL FOLLOW
--- NOTE | 2020-05-17 14:45 | NUR ---
THIS RN IN PTS ROOM TO PASS MEDS. PT SITTING UP TO CHAIR AND PER REPORT FROM [place] AND INSPECTION OF SITE, WOUND CHANGE WAS DONE AND IS STILL CLEAN/ DRY/ INTACT. PT STATES THAT PAIN IS 5/10 BUT IS TOELRABLE
--- NOTE | 2020-05-17 15:17 | NUR ---
PRAVIN DRESSING SATURATED. DR BATES CALLED AND NOTIFIED. PURULENT DRAINAGE PRESENT. CLEANED WITH NORMAL SALINE AND GAUZE. NEW PRAVIN PLACED ON LEFT HIP. ACTICOAT OVER DRAIN HOLES. SPICA PLACED. PT TOLERAED WELL.
--- NOTE | 2020-05-17 16:45 | NUR ---
THIS RN IN PTS ROOM TO CHANGE MIDLINE DRESSING DUE TO NOTICING THAT PTS DRESSING WAS ROLLIGN UP DUE TO PT MOVING ARM. THIS RN USED STERILE TECHNIQUE AND DRESSING IS C/D/I
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
--- NOTE | 2020-05-17 18:00 | NUR ---
THIS RN IN TO PASS MEDS. PT REFUSING TO WEAR THE CRYO CUFF AT THIS TIME
--- NOTE | 2020-05-17 18:11 | NUR ---
PATIENT UP TO BATHROOM THEN TO BED, 1PA FWW. VITALS AND I&O'S CHARTED. CRYO FILLED. RN IN ROOM. CALL LIGHT IN REACH. NO FURTHER NEEDS AT THIS TIME.
--- NOTE | 2020-05-17 19:10 | NUR ---
CHARGE NURSE REPORT RECEIVED FROM DAY CHARGE.
--- NOTE | 2020-05-17 19:52 | NUR ---
REPORT RECEIVED FROM DAY SHIFT RN. PT LYING IN BED ALERT AND ORIENTED. REPORTS PAIN TOLERABLE. DRESSING TO LEFT HIP CDI. IV ABX COMPLETE. DENIES NEEDS AT THIS TIME. WHITE BOARD UPDATED. CALL LIGHT IN REACH.
--- NOTE | 2020-05-17 22:30 | NUR ---
V/S AND I&O'S COMPLETED. ICE WATER AND CRYO REFILLED.
--- NOTE | 2020-05-17 22:30 | NUR ---
EVENING ASSESSMENT COMPLETE. SCHEDULED MEDS ADMINISTERED PER EMAR. IV ABX INFUSING. PICC LINE FLUSHED PER PROTOCOL, BRISK BLOOD RETURN NOTED. SPICA DRESSING TO LEFT HIP IN PLACE, CDI. PRAVIN DRESSING IN PLACE, LIGHT FLASHING GREEN. CHON BUNCH, PT REFUSING TO WEAR SCD'S/HP/CRYO AT THIS TIME. PT REPORTS VOIDING AND DRINKNG A LOT. CBG 99. PT ALSO REPORTS MILD NAUSEA AND HAVING A "BURPY STOMACH". OFFERED PRN MAALOX, PT STATES "I'LL TRY IT LATER". DENIES FURTHER NEEDS AT THIS TIME. CALL LIGHT IN REACH.
--- NOTE | 2020-05-18 00:20 | NUR ---
ASSISTED TO THE BATHROOM USING WALKER. PRIMARY RN BROWN AND THIS RESISTOR WINDER HELPING PATIENT CLEANED UP PATIENT FROM HAVING BOWEL MOVEMENT. CHANGED BED LINEN. CHANGED GOWN. PATIENT WAS BACK IN BED. 2 RNS WERE IN THE ROOM CHANGING SPIKA DRESSING.
--- NOTE | 2020-05-18 00:45 | NUR ---
PT UP TO SIDE OF BED TO VOID. UPON RETURNING TO ROOM PT HAD BEEN INCONTINENT OF STOOL, UP TO BR WITH FWW AND 1PA TO HAVE SOFT BM. STAFF ASSIST WITH LEIGHA CARE. SPICA DRESSING CHANGED DUE TO BEING SOILED. PRAVIN DRESSING WITH LARGE AMOUNT SEROSANG DRESSING, LIGHT FLASHING GREEN. ONE SMALL BLISTER NOTED IN THE FOLD OF PTS WAIST, INTACT. LEFT THIGH NOTED TO BE REDDENED AND WARM TO TOUCH. PT BACK TO BED AT THIS TIME. SCD'S/TEDS/HP/CRYO IN PLACE. PT DENIES FURTHER NEEDS. CALL LIGHT IN REACH. BED ALARM FOR SAFETY.
--- NOTE | 2020-05-18 02:35 | NUR ---
SCHEDULED MEDS ADMINISTERED. IV ABX INFUSING PER ORDER. PICC LINE FLUSHED PER PROTOCOL. BRISK BLOOD RETURN NOTED. PT REPORTS HE IS RESTING WELL, NO NEEDS AT THIS TIME. CALL LIGHT IN REACH. BED ALARM FOR SAFETY.
--- NOTE | 2020-05-18 04:56 | NUR ---
PT RESTING IN BED WITH EYES CLOSED, NAD.
--- NOTE | 2020-05-18 05:13 | NUR ---
BED ALARM SOUNDING. PT REPOSITIONING SELF IN BED. PRAVIN "DRESSING FULL INDICATOR" LIGHT FLASHING AT THIS TIME. SPICA DRESSING REMAINS IN PLACE, NO DRAINAGE NOTED. SCD'S/TEDS/HP IN PLACE. FRESH ICE TO CRYO. PT REPORTS PAIN IS TOLERABLE. DENIES FURTHER NEEDS. BED ALARM FOR SAFETY. CALL LIGHT IN REACH.
--- NOTE | 2020-05-18 06:45 | NUR ---
SCHEDULED MEDS ADMINISTERED. IV ABX INFUSING. PT REPORTS PAIN IS TOLERABLE. NO FURTHER NEEDS. BED ALARM FOR SAFETY. CALL LIGHT IN REACH.
--- NOTE | 2020-05-18 07:21 | NUR ---
PT AWAKE AND INTERACTIVE AT TIME OF SHIFT EXCHANGE. RESTING IN BED READING DENIES NEEDS.
--- NOTE | 2020-05-18 08:21 | NUR ---
DR BATES' KICK BOXER IN TO ASSESS PT. DRESSING TO L HIP CHANGED. PT TO THE CHAIR WITH MORNING MEAL CALL LIGHT IN [place] AG[place]ES TO CALL FOR ANY NEEDS OIR TO GET UP
--- NOTE | 2020-05-18 08:45 | NUR ---
POSITIVE BLOOD CULTURE CALLED, I TOOK IT SINCE THERE WAS NO NURSE AVAILABLE. IT WAS GRAM POSITIVE COCCI IN AEROBIC BOTTLE. I CALLED KISHA AND SHE SAID ITS THE SAME THAT HES BEEN GROWING. WROTE IN LAB VALUE BOOK.
--- NOTE | 2020-05-18 09:14 | NUR ---
PATIENT IN CHAIR WATCHING TV. REFUSED TRAINING AND DEVELOPMENT DIRECTOR/BEDBATH AT THIS TIME, SAID HE GOT CLEANED UP PRETTY GOOD LAST NIGHT. AM CARE SUPPLIES PROVIDED. LINENS CHANGED. VITALS AND I&O'S CHARTED. CALL LIGHT IN REACH. NO FURTHER NEEDS AT THIS TIME.
--- NOTE | 2020-05-18 09:15 | NUR ---
CALL FROM LAB FOR CORRECTION OF POSITIVE BLOOD CULTURES. REPORTS GRAM NEGATIVE BACILLI FOR THE POSITIVE CULTURE. DR JAIMES NOTIFIED.
--- NOTE | 2020-05-18 10:26 | NUR ---
pt to xray for mri scan
--- NOTE | 2020-05-18 10:50 | NUR ---
Stopped to see Claus, he has gone for an MRI.
--- NOTE | 2020-05-18 11:45 | NUR ---
PT TAKEN TO IMAGING FOR MRI. WILL CHECK BACK
--- NOTE | 2020-05-18 12:34 | NUR ---
P/T IN TO WORK WITH PT STATES HE WILL DOING SOME MESSAGE IN AN EFFORT TO DECREASE RETAINED FLUIDS IN THE LEG AND THIS COULD CAUSE ADDITIONAL DRAINAGE. PT CONTINUES IN CHAIR LUNCH IS ORDERED
--- NOTE | 2020-05-18 12:50 | NUR ---
PT BACK FROM MRI. SITTING IN CHAIR EATING LUNCH. PT SEEMS ALERT, ORIENTED AND ENJOYING HIS LUNCH. PT SAID HE WILL HADVE TO HAVE IV PUMP AT HOME FOR 30-60 DAYS AND THAT HIS CAN HELP. HE JUST HASN'T DISCUSSED THIS WITH HER YET. THANKED ME FOR VISITING. GAVE BLESSING, WILL FOLLOW
--- NOTE | 2020-05-18 14:18 | NUR ---
PT CONTINUES UP IN THE CHAIR AFTER NOON MEAL. IS PRESENT PT VISITING ACTIVELY. DENIES DISCOMFORTS OR NEEDS AT THIS TIME.
--- NOTE | 2020-05-18 15:42 | NUR ---
Patient resting in chair visiting with family. Patient reports tolerable left hip pain, 1/10 pain level reported. Left hip dressing is intact and flashing green. Notable sarosang drainage under dressing. CMS intact. Patient reports he is tired and would like to rest for now. No needs. Personal supplies and call light within reach.
--- NOTE | 2020-05-18 18:39 | NUR ---
PATIENT TO BED FROM CHAIR, 1PA FWW, CRYO FILLED. VITALS AND I&O'S CHARTED. CALL LIGHT IN REACH. NO FRUTHER NEEDS AT THIS TIME.
--- NOTE | 2020-05-18 19:22 | NUR ---
REPORT RECEIVED FROM DAY SHIFT RN. PT LYING IN BED ALERT AND ORIENTED. PRAVIN DRESSING TO LEFT WITH MODERATE AMOUNT SEROSANG DRAINAGE. LIGHT FLASHING GREEN. PT DENIES NEEDS AT THIS TIME. WHITE BOARD UPDATED. CALL LIGHT IN REACH.
--- NOTE | 2020-05-18 22:10 | NUR ---
V/S AND I&O'S DONE. ICE WATER REFILLED. NO FURTHER NEEDS AT THIS MOMENT. URINAL EMPTIED.
--- NOTE | 2020-05-18 22:22 | NUR ---
EVENING ASSESSMENT COMPLETE. SCHEDULED MEDS ADMINISTERED PER EMAR. PICC LINE FLUSHED PER PROTOCOL, BRISK BLOOD RETURN NOTED IN BOTH LUMENS. IV ABX INFUSING PER ORDER. PRAVIN DRESSING ON LEFT HIP WITH MODERATE AMOUNT SEROSANG DRAINAGE. LIGHT FLASHING GREEN. LEFT LEG EDEMA NOTED. TEDS IN PLACE. PT REFUSING SCD'S/HP AND CRYO AT THIS TIME. REPORTS PAIN /10. SCHEDULED ULTRAM PROVIDED. DENIES NAUSEA. NO FURTHER NEEDS AT THIS TIME. CALL LIGHT IN REACH.
--- NOTE | 2020-05-18 23:10 | NUR ---
IV ABX COMPLETE. PICC LINE HEP LOCKED PER ORDER. SCD'S/TEDS/HP/CRYO IN PLACE AT THIS TIME. FRESH ICE TO CRYO. FRESH WATER PROVIDED. PT DENIES FURTHER NEEDS. BED ALARM FOR SAFETY. CALL LIGHT IN REACH.
--- NOTE | 2020-05-19 02:21 | NUR ---
SCHEDULED MEDS ADMINISTERED. IV ABX INFUSING PER ORDER. PT REPORTS HE IS RESTING COMFORTABLE. DENIES NEEDS.
--- NOTE | 2020-05-19 03:52 | NUR ---
IV ABX COMPLETE. PRAVIN DRESSING TO LEFT HIP WITH MODERATE AMOUNT SEROSANG DRAINAGE, LIGHT FLASHING GREEN. EDEMA TO LEFT LEG NOTED. CMS INTACT. SCD'S/TEDS/HP/CRYO IN PLACE. PT DENIES NEEDS. CALL LIGHT IN REACH.
--- NOTE | 2020-05-19 06:09 | NUR ---
AM LABS DRAWN THROUGH PICC LINE PER PROTOCOL. SCHEDULED MEDS ADMINISTERED. IV ABX INFUSING. PT REPORTS PAIN IS MINIMAL WHEN LYING IN BED. PRAVIN DRESSING TO LEFT HIP UNCHANGED. LIGHT FLASHING GREEN. PT REQUESTED SCD'S/HP/CRYO OFF FOR A "BREAK". TEDS IN PLACE. NO FURTHER NEEDS. CALL LIGHT IN REACH.
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
--- NOTE | 2020-05-19 11:12 | NUR ---
Patient sitting up in chair visiting with . Left hip rosa dressing unchanged; intact with sarosang drainage noted, green flashing. Patient reports tolerable pain level; 2/10. Patient tolerating diet well with good urine output. No needs. Instructed patient to call staff if he needs to get up. IV abx infusing through PICC line.
--- NOTE | 2020-05-19 13:00 | NUR ---
Notified by Ismael in pharmacy they are considering a 24 hour infusion so pt will only need to flush 1 x per day. Updated pt will not be coming into the hospital for IV antibiotics but will deliver to self with education from HH. Texted Dr Orellana I will need an full script with start and stop date. I will need in advance as it takes 1-3 days for meds and supplies to be organized and shipped to pt's home for HH to provide education. I will send rx to [facility] infusion pharmacy.
--- NOTE | 2020-05-19 13:33 | NUR ---
REPORT RECIEVED FROM CHAPIN VIRGEN.
--- NOTE | 2020-05-19 13:36 | NUR ---
CONNECTED WITH PT HE WAS AMBULATING IN MORALES WITH Gil QUEEN. PT DILIGENT, APPEARS TO BE WORKING HARD TO RECOVER/REHAB JOINT. GAVE ENCOURAGEMENT, PT ACKNOWLEDGED
--- NOTE | 2020-05-19 14:08 | NUR ---
IN TO CHECK ON PATIENT, MEDICATION PASS. LEFT HIP DRESSING IS 3/4 SATURATED, INCLUDING SOME OLD DRY AREAS, GREEN LIGHT IS FLASHING ON PRAVIN. PATIENT ENCOURAGED TO HAVE SCDS PULLED UP AND KRYO CUFF ON, PATIENT SAID, "NO, NOT RIGHT NOW." PATIENT IS SITTING UP TO CHAIR, ZOSYN ABX INFUSING.
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
--- NOTE | 2020-05-19 17:51 | NUR ---
PATIENT DID WELL WITH DINNER 100% RATES LEFT HIP PAIN 2/10, GIVEN SCHEDULED ULTRAM. VITALS ARE STABLE.
--- NOTE | 2020-05-19 19:24 | NUR ---
PATIENT RESTING QUIETLY IN BED WATCHING TV. PATIENT HAS NO CURRENT CARE NEEDS. PATIENT'S CALL LIGHT IS IN REACH.
--- NOTE | 2020-05-19 21:15 | NUR ---
PT CALLED WANTED MORE WATER. PT IN BED, STATED HE "COULDN'T FIND HIS CALL LIGHT" AND PUT SELF TO BED. THEN CALLED. EDUCATED PT IN NOT SELF TRANSFERING, AND THAT THE CALL LIGHT WAS IN THE CHAIR HE WAS SITTING IN. FRESH ICE WATER GIVEN. PRIMARY RN, ALISSA AWARE. PLAN TO USE BEDALARM
--- NOTE | 2020-05-19 21:35 | NUR ---
PATIENT IS ALERT AND ORIENTED AND VS ARE STABLE. PATIENT'S LEFT HIP DRESSING IS INTACT WITH DRY GREEN/BROWN DRAINAGE UNDER THE DRESSING. LIGHT ON PRAVIN IS FLASHING ORANGE. LUNGS ARE CLEAR AND BOWEL TONES ACTIVE. PATIENT HAVING 3/10 PAIN IN THE LEFT HIP AND 50MG TRAMADOL GIVEN WITH EVENING MEDS. PICC LINE FLUSHES WELL AND IS HEPLOCKED. PATIENT'S CRYO REFILLED WITH ICE AND PLACED ON THE LEFT HIP WITH CLOTH BARRIER. PATIENT DOES NOT WANT TO PULL UP HIS LUIS HOSE AT THIS TIME AND HAS THEM AROUND HIS FEET ONLY AND WANTS TO KEEP THEM THERE. PATIENT REFUSED EVENING STOOL SOFTENER AND WON'T USE HIS SCD'S. PAIENT HAS NO OTHER NEEDS AT THIS TIME. CALL LIGHT IN REACH.
--- NOTE | 2020-05-19 23:16 | NUR ---
PATIENT RESTING QUIETLY IN BED WATCHING TV. NO CARE NEEDS AT THIS TIME. CALL LIGHT IS IN REACH.
--- NOTE | 2020-05-19 23:51 | NUR ---
PATIENT CONTINUES TO LAY IN BED WATCHING TV. CALL LIGHT IN REACH AND NO CARE NEEDS AT THIS TIME.
--- NOTE | 2020-05-20 00:43 | NUR ---
PATIENT RESTING IN BED, TV IS NOW OFF, PATIENT'S EYES ARE CLOSED, RESPIRATIONS REGLAR AND EVEN, CALL LIGHT IS IN REACH.
--- NOTE | 2020-05-20 02:02 | NUR ---
PATIENT WAS SLEEPING UNTIL THIS RN CAME IN TO DUMP THE URINAL AND GIVE 2AM TRAMADOL. PATIENT'S LEFT HIP PAIN IS 2/10 AND TRAMADOL 5OMG GIVEN PO. URINAL DUMPED BY NAUN DIXON. PATIENT HAS NO OTHER CARE NEEDS AT THIS TIME. CALL LIGHT IS IN REACH.
--- NOTE | 2020-05-20 03:20 | NUR ---
PATIENT IN BED IN SEMI-FOWLERS POSITION, EYES CLOSED, RESPIRATIONS REGULAR AND EVEN, CALL LIGHT IS IN REACH.
--- NOTE | 2020-05-20 05:42 | NUR ---
PATIENT HAS SLEPT BETWEEN HIS DOSES OF TRAMADOL AND PATIENT HAS NOT HAD MORE THAN 3/10 OF PAIN AND IS COMFORTABLE AT A 2/10. LEFT HIP DRESSING REMAINS UNCHANGED WITH NO NEW DRAINAGE AND PRAVIN DRESSING IN PLACE STILL BLINKING ORANGE. VS REMAIN STABLE. CALL LIGHT REMAINS IN REACH AND PATIENT HAS NO OTHER CARE NEEDS AT THIS TIME. CRYO REMAINS IN PLACE ON LEFT HIP, PATIENT STILL DOSE NO WANT TO PULL UP HIS LUIS HOSE, OR USE HIS SCD'S.
--- NOTE | 2020-05-20 08:30 | NUR ---
REPORT RECEIVED FROM NIGHT RN AND PT. CARE RESUMED. PT. IS ALERT AND ORIENTED. HE AMBULATED WITH A 2PA AND FWW TO THE CHAIR. NONCOMPLIANT WITH SCDs AND LIUS PETER. LEFT LEG HAS +2 EDEMA FROM HIP TO FOOT. LT. HIP DRESSING HAS OLD SHADOWING AND PICCO FLASHING ORANGE. WILL BE CHANGED TODAY. IV FLUIDS RUNNING TKO AT 25ML/HR AND OTHER LUMEN OF PICC HEP. LOCKED. PT. LUNGS CLEAR AND BOWEL TONES ACTIVE. PT. LEFT RESTING IN CHAIR WITH CALL LIGHT IN REACH.
--- NOTE | 2020-05-20 10:00 | NUR ---
LEFT HIP DRESSING REPLACED WITH NEW PICCO WITH BATTERY PACK. OLD DRESSING SATURATED WITH SERISANGUINOUS DRAINAGE AND LEAKING WHEN DRESSING REMOVED. INCISION SITE HAS SUTURES INTACT AND NO REDDNESS. NEW PICCO FLASHING GREEN. PT. TOLERATED WELL AND LEFT RESTING IN CHAIR WITH CALL LIGHT IN REACH.
--- NOTE | 2020-05-20 11:02 | NUR ---
PATIENT IS SITTING UP IN HIS CHAIR. HE ALSO SET IN HIS CHAIR FOR BREAKFAST. PATIENT ALSO BRUSHED HIS TEETH AND WASHED HIS FACE. HE ALSO DID HIS OWN PARTIAL BATH.
--- NOTE | 2020-05-20 11:39 | NUR ---
I JUST FOUND OUT PATIENT CAN TAKE A SHOWER. HE SAID IT DENPENDS ON HOW HE FEELS AFTER PHYSICAL THERAPY THIS AFTERNOON. I DID SET UP HIS SHOWER.
--- NOTE | 2020-05-20 12:15 | NUR ---
Called and spoke with Juanita from [facility]. Notified Claus will be discharging in the near future and will need assist with IV antibiotics and PICC dressing change. She states they cannot admit over the weekend and would not admit until Sun as they only see pt on in [place]. I asked what they do if a PICC line clogs or there's an emergency and she does state they could see the pt after hours. They will not admit on Sunday if the pt discharges on Sunday and admit would be on Sun.
--- NOTE | 2020-05-20 13:54 | NUR ---
PT. SLEEPING IN THE CHAIR. PAIN TOLERABLE IN LEFT HIP AND PRESENT WHEN REPOSITIONING OR AMBULATING. IVF RUNNING TKO AND PICC LUMENS FLUSH WELL, RETURN BLOOD. PICCO DRESSING ON LEFT HIP CDI AND FLASHING GREEN. LUNGS CLEAR AND VITALS STABLE. PT. LEFT RESTING IN CHAIR WITH CALL LIGHT IN REACH.
--- NOTE | 2020-05-20 14:35 | NUR ---
PT ASLEEP, WILL CHECK BACK AGAIN
--- NOTE | 2020-05-20 19:00 | NUR ---
SHIFT REPORT RECEIVED FROM FT CHAPIN MURRAY, IN ROOM. PRAVIN DRESSING FLASHING ORANGE, SUCTION PUMP RESET, WILL MONITOR. LARGE AMOUNT SEROSANGUINEOUS SHADOWING NOTED. PER CHAPIN MURRAY, PRAVIN DRESSING CHANGED TODAY ON AND SHADOWING DEVELOPS AFTER pt GETS LEGS MASSAGED FROM PT. IV ABX INFUSING PER MD ORDERS. WILL MONITOR. NO FURTHER NEEDS, CALL LIGHT IN REACH. BOARD UPDATED.
--- NOTE | 2020-05-20 21:00 | NUR ---
PHONE CALL MADE TO PAULO SANCHEZ TO COVER AT THIS TIME. GARRETT BEARD MADE AWARE THAT CURRENT PRAVIN DRESSING IS NEARLY FULLY SATURATED WITH SEROSANGUINEOUS/YELLOW SHADOWING AND FLASHING ORANGE. TELEPHONE ORDER READ BACK TO REPALCE DRESSING, BUT LEAVE CURRENT BATTERY PACK IN PLACE. NO ADDITIONAL ORDERS.
--- NOTE | 2020-05-20 21:50 | NUR ---
IN TO GET VITALS, I&Os DONE, URINAL EMPTIED, RN IN FOR PM MEDS, CYRO ICE REFILLED, ICE WATER REFILLED, NO FURTHER NEEDS AT THIS TIME
--- NOTE | 2020-05-20 22:00 | NUR ---
ASSESSMENT COMPLETE, SCHEDULED MEDS GIVEN, SEE EMAR. BRISK BLOOD RETURN NOTED TO BOTH LUMENS FROM PICC LINE, DRESSING C/D/I, SCHEDULED ABX INFUSING PER MD ORDERS. pt REPORTS TOLERABLE 3/10 PAIN TO LEFT HIP. PRAVIN DRESSING NEARLY FULLY SATURATED, SEROSANGUINEOUS/YELLOW IN COLOR. CONTINUE TO FLASH ORANGE, WILL REPLACE PRAVIN DRESSING PER TELEPHONE ORDERS FROM GARRETT BEARD. LUIS PETER, SCD'S, AND CYRO CUFF IN PLACE. pt IN BED, DENIES FURTHER NEEDS. CALL LIGHT IN REACH.
--- NOTE | 2020-05-20 23:30 | NUR ---
PRAVIN DRESSING CHANGED PER INSTRUCTIONS, INCISION SITE WNL, NEW PRAVIN DRESSING APPLIED AND WORKING APPROPRIATELY, GREEN FLASHING LIGHT FLASHING. PRODUCTION WOOD CRAFTSMANCHAPIN SOLIS ALSO IN ROOM. CYRO CUFF REMAINS IN PLACE, NO FURTHER NEEDS AT THIS TIME, CALL LIGHT IN REACH.
--- NOTE | 2020-05-21 01:43 | NUR ---
pt RESTING QUIETLY IN BED, AWAKE. LUIS HOSE AND SCD'S REMAIN IN PLACE. IV ABX INFUSING PER MD ORDERS, SITE WNL. PRAVIN DRESSING CONTINUES TO WORK APPROPRIATELY, GREEN LIGHT FLASHING. NO NEEDS AT THIS TIME. CALL LIGHT IN REACH.
--- NOTE | 2020-05-21 02:44 | NUR ---
IV ABX COMPLETE, PICC LINE FLUSHED AND HEP LOCKED PER PROTOCOL. BLOOD RETURN NOTED TO BOTH LUMENS. SCHEDULED PAIN MEDICATION GIVEN FOR 2-3/10 GENERALIZED LEFT HIP PAIN, SEE EMAR. PRAVIN DRESSING INTACT, SMALL AMOUNT OF YELLOW/SEROSANGUINEOUS SHADOWING NOTED, GREEN LIGHT CONTINUES TO FLASH. CYRO CUFF, SCD'S AND LUIS HOSE REMAIN IN PLACE. NO FURTHER NEEDS, CALL LIGHT IN REACH.
--- NOTE | 2020-05-21 06:05 | NUR ---
IN TO GET VITALS, URINAL EMPITED, CHAIR ALARMED IN PLACE, ICE WATER FILLED, NO FURTHER NEEDS
--- NOTE | 2020-05-21 06:34 | NUR ---
SCHEDULED IV ABX AND PAIN MEDICATION GIVEN, SEE EMAR. PICC LINE WNL, BRISK BLOOD RETURN NOTED BEFORE MED ADMINISTRATION. pt REPORTS 5/10 PAIN, CAUGHT NOT USING CALL LIGHT AND GETTING OOB, EDUCATION PROVIDED. WHEN ASKED WHY HE DIDN'T CALL, pt STATES, "BECAUSE I DIDN'T". pt IN CHAIR, CHAIR ALARM IN PLACE. PRAVIN DRESSING WORKING WELL, GREEN LIGHT FLASHING. NO FURTHER NEEDS, LUIS HOSE IN PLACE. pt REFUSES CYRO CUFF. CALL LIGHT IN REACH.
--- NOTE | 2020-05-21 07:30 | NUR ---
RECEIVED REPORT AT 0700, FOUND PT IN CHAIR WATCHING TV. PT HAD NO NEEDS OR CONCERNS AT THAT TIME.
--- NOTE | 2020-05-21 08:30 | NUR ---
PT IN NEED OF CHAIR/BED ALARM. LOBES ARE CLEAR BUT DIMINISHED IN THE BASES. PT A&OX4, ABD SOUNDS ARE PRESENT, PEDIS PULSES+1, CAP REFILL <2SEC ON TOES, LEFT HIP DRESSING HAS SOME SEROUS/SANG. DRAINAGE PRESENT. NO NEED TO CHANGE DRESSING AT THIS TIME. WILL CONTINUE TO MONITOR. PT DOES PUSHES HIS LUIS-HOSE DOWN BECAUSE HE LIKES IT BETTER THAT WAY STATED BY HIM. PT ALSO NEEDS BED/CHAIR ALARM SINCE HE GETS UP WITHOUT CALLING FOR ASSISTANCE.
--- NOTE | 2020-05-21 10:00 | NUR ---
Spoke with pt and . They deny needs. Cont. to plan on dc to home with IV antibiotics x 6 weeks. [facility] will follow. Updated I had spoke with Juanita from [facility] and they would be able to admit on Sun of next week.
--- NOTE | 2020-05-21 10:24 | NUR ---
PT IN ROOM WITH VISITOR. PT HAD NO NEEDS AT THIS TIME.
--- NOTE | 2020-05-21 11:42 | NUR ---
Received Rx for Deftriaxone 2 mg IV Q day for home antibiotics with orders. Called and spoke with [facility] and faxed chart notes, face sheet, RX, medication list to [facility]. NOtified [facility] will follow this patient and pt will discharge on Sunday05/24/20.
--- NOTE | 2020-05-21 11:42 | NUR ---
Received Rx for Ceftriaxone 2 mg IV Q day for home antibiotics with orders from Dr. Orellana. Called and spoke with [facility] and faxed chart notes, face sheet, RX, medication list to [facility]. Notified [facility] will follow this patient and pt will discharge on Sunday05/24/20.
--- NOTE | 2020-05-21 11:47 | NUR ---
WAS ABOUT TO START ROCEPHIN AND NOTED THAT PT PICC-LINE WAS PULLED OUT ABOUT AN INCH OR SO. JAYESH FROM [facility] WAS CALLED.
--- NOTE | 2020-05-21 12:04 | NUR ---
CHEST X-RAY ORDERED TO SEE IF PICC IS STILL IN PLACE.
--- NOTE | 2020-05-21 12:41 | NUR ---
CHECKED ON PT-IV ALARM GOING OFF, LUNCH JUST BEING DELIVERED.PT HAD BEEN NAPPING.INFORMED CHAPIN FRENCH OF ALARM, GAVE PT A BLESSING. WILL FOLLOW
--- NOTE | 2020-05-21 13:30 | NUR ---
PICC-KENAITZE IS STILL USABLE PER CHAPIN RED AND CHEST X-RAY. PICC LINE AND AREA WERE CLEAND AND A NEW SECUREMENT DEVICE WAS ATTACHED. STERIL DRESSING CHANGE WAS DONE. BOTH LUMENS FLUSH AND HAVE BLOOD RETURN PRESNE. MD FERNANDES AND NEDA SAMSON WERE NOTIFIED.
--- NOTE | 2020-05-21 14:51 | NUR ---
DRESSING ON LEFT HIP IS UNCHANGED SINCE THIS MORNING. A SMALL AMOUNT OF SEROUS DRAINAGE IS PRESENT WITH NO CHANGE SINCE THIS MORNING. NO OTHER CHANGES WERE NOTED WITH THE SECOND ASSESSMENT.
--- NOTE | 2020-05-21 16:37 | NUR ---
CHECKED ON PATIENT ASKED PATIENT IS THERE ANYTHING THAT HE NEEDED AND HE SAID NO. VISITOR IN ROOM. PATIENT IS SITTING UP IN HIS CHAIR.
--- NOTE | 2020-05-21 18:19 | NUR ---
PT IN ROOM WITH AT BEDSIDE. BOTH LUMENS AER HEP-LOCKED. NO NEW CONCERNS NOTED.
--- NOTE | 2020-05-21 19:30 | NUR ---
SHIFT REPORT FROM NURSE FRENCH. PT UP IN CHAIR WITH IN ROOM. PT DENIES NEEDS AT THIS TIME. CALL LIGHT WITHIN REACH.
--- NOTE | 2020-05-21 21:00 | NUR ---
IN ROOM FOR EVENING MEDS AND ASSESSMENT. PT STILL IN CHAIR, EYES CLOSED THIS NURSE ENTERED ROOM. PT REPORTS HE IS "WATCHING TV". PT REFUSES STOOL SOFTENER FOR THIS EVENING. PT REPORTS "VERY LITTLE PAIN". PRAVIN FLASHING GREEN, PRAVIN DRESSING HAS SEROSANGUINOUS DRAINAGE THAT IS UNCHANGED SINCE BEGINNING OF SHIFT AND ACCORDING TO SHIFT REPORT, UNCHANGED THROUGHOUT THE DAY. CMS INTACT, VSS, PICC LINE FLUSHES WELL AND BOTH LUMENS HAVE GOOD BLOOD RETURN. ENDS OF PICC LINE WRAPPED IN COBAN TO SECURE TO PT'S ARM TO AVOID ANY DISLODGING. CALL LIGHT, URINAL AND PT'S CELL PHONE WITHIN REACH.
--- NOTE | 2020-05-21 22:27 | NUR ---
IN ROOM FOR 2199 SCHEDULED MED. PT SLEEPING IN CHAIR THIS NURSE ENTERS ROOM. PT REPORTS PAIN 2-3/10 IN LEFT HIP. PT INSISTS HE WANTS TO STAY IN CHAIR AT THIS TIME SINCE HE IS "STILL WATCHING TV". CALL LIGHT, URINAL AND PT CELL PHONE WITHIN REACH. PRAVIN FLASHING GREEN.
--- NOTE | 2020-05-22 00:16 | NUR ---
CHECKED ON PT. PT APPEARS TO BE SLEEPING WITH EYES CLOSED, EVEN BREATHING NOTED. CALL LIGHT WITHIN REACH, LIGHTS ON IN ROOM AT PT'S REQUEST.
--- NOTE | 2020-05-22 02:13 | NUR ---
IN ROOM FOR SCHEDULED MEDS. PT STILL SLEEPING IN CHAIR. REFUSES TO MOVE TO BED TO SLEEP. EDUCATED PT ON POSITION CHANGE AND BENEFITS OF SLEEPING IN BED VS CHAIR. PT REPEATS "I'M ALRIGHT". ENCOURAGED PT TO TRY SLEEPING IN BED FROM NOW UNTIL 0600. PT ALLOWED THIS NURSE TO CHECK PRAVIN DRESSING WHICH IS UNCHANGED FROM BEGINNING OF SHIFT; PRAVIN DEVICE BLINKING GREEN. ENCOURAGED PT ONCE AGAIN TO MOVE OVER TO BED; PT STATES THAT HE SLEEPS IN A RECLINER CHAIR AT HOME AND THEN PT ASKS THIS NURSE POLITELY TO LEAVE THE ROOM. CALL LIGHT WITHIN REACH, URINAL EMPTIED AND PLACED WITHIN REACH.
--- NOTE | 2020-05-22 03:34 | NUR ---
CALL LIGHT ANSWERED. SBA FROM CHAIR TO BED. PT AGREES TO SCD'S BUT DECLINES CRYO UNIT. PRAVIN FLASHING GREEN. FRESH WATER SUPPLIED, URINAL EMPTIED. CALL LIGHT, URINAL AND PT'S CELL PHONE PLACED WITHIN REACH. NO FURTHER NEEDS AT THIS TIME.
--- NOTE | 2020-05-22 06:05 | NUR ---
CALL LIGHT ANSWERED. PT UP TO TOILET FOR BM. SBA FWW. PRAVIN FLASHING GREEN. SLIGHTLY LARGER AREA OF SEROSANGUINOS DISCHARGE ON PRAVIN DRESSING, OTHERWISE INTACT. ASSESSMENT COMPLETED ALONG WITH VITALS, I&OS, SCHEDULED MEDS. CALL LIGHT WITHIN REACH.
--- NOTE | 2020-05-22 08:00 | NUR ---
RECEIVED REPORT AT 0700, PT IN BED AWAKE. NO NEW CONCERNS NOTED AT THIS TIME.
--- NOTE | 2020-05-22 10:00 | NUR ---
ALL LOBES HAVE SOME EXPIRAT. WHEEZING PRESENT. PT DENIES SOB. PICCO DRESSING ON LEFT HIP HAS A BIT MORE DRAINAGE PRESENT. NO OTHER NEW CONCERNS WERE NOTED WITH FIRST ASSESSMENT.
--- NOTE | 2020-05-22 13:00 | NUR ---
IN ROOM. PT HAS SHOWERED AND IS SITTING IN CHAIR. PT STATED THAT HE WILL USE THE CALL HORTA AND NOT GET UP ON HIS OWN. NO NEW CONCERNS NOTED AT THIS TIME.
--- NOTE | 2020-05-22 15:00 | NUR ---
PT IN ROOM WITH AT BEDSIDE. PT IN CHAIR AT THIS TIME. NO NEW CONCERNS NOTED.
--- NOTE | 2020-05-22 16:34 | NUR ---
PICCO DRESSING AT THIS TIME IS SATURADED AGAIN WITH SEROUSANG. FLUID. WILL CALL PA WITH UPDATE. NEW PICCO DRESSING TO BE APPLIED SHORTLY.
--- NOTE | 2020-05-22 18:27 | NUR ---
PT IN ROOM. WILL CONTINUE TO MONITOR DRESSING.
--- NOTE | 2020-05-22 18:31 | NUR ---
PICCO DRESSING AT THIS TIME HAS ABOUT A 4CM SEROUSANG. NONDALTON PRESENT. PICCO PUMP IS WORKING.
--- NOTE | 2020-05-22 19:10 | NUR ---
IN ROOM FOR REPORT, PT IS AWAKE IN THE CHAIR. HE DENIES NEEDS AT THIS TIME. CALL LIGHT IS CLOSE.
--- NOTE | 2020-05-22 20:23 | NUR ---
IN ROOM TO ASSESS PT AND ADMISTERED MEDICATIONS. PT RATES PAIN IN L HIP AT 3/10-ADMINISTERED TYLENOL. PT REFUSED SENOKOT AND CRYOCUFF/SCDS AT THIS TIME. EMPTIED URNIAL AND PT HAS FRESH ICEWATER AT BEDSIDE. PICC LINE IS ALREADY HEPLOCKED. PT DENIES FURTHER NEEDS AT THIS TIME. HE IS WATCHING TV IN THE RECLINER, CALL LIGHT IS CLOSE AND PT STATES HE WILL NOT GET UP ON HIS OWN BUT HE WILL CALL IF HE NEEDS TO GET UP.
--- NOTE | 2020-05-22 22:24 | NUR ---
IN ROOM TO ADMINISTER ULTRAM 2/10 PAIN. ASSISTED PT TO TH RESTROOM AND BACK TO BED. SCDS ARE ON BUT PT REFUSES CRYOCUFF. VS AND I&O'S ENTERED AND PT DENIES FURTHER NEEDS. CALL LIGHT IS CLOSE.
--- NOTE | 2020-05-23 00:27 | NUR ---
PT IS RESTING WITH EYES CLOSED, RR IS EVEN AND NONLABORED. CALL LIGHT IS CLOSE.
--- NOTE | 2020-05-23 01:20 | NUR ---
SHIFT REPORT RECEIVED FROM CHAPIN SOLIS, QUESTIONS ANSWERED. THIS RN TO RESUME CARE AT THIS TIME. pt RESTING IN BED WITH EYES CLOSED, RR EVEN AND UNLABORED. CALL LIGHT IN REACH.
--- NOTE | 2020-05-23 02:30 | NUR ---
ASSESSMENT COMPLETE, pt REPORTS 2-3/10 PAIN IN LEFT HIP. PRAVIN DRESSING INTACT, GREEN LIGHT FLASHING. PER REPORT FROM CHAPIN SOLIS, NO SIGNS OF NEW SHADOWING, WILL MONITOR. PICC LINE DRESSING INTACT, BRISK BLOOD RETURN NOTED, BOTH LUMENS SALINE FLUSHED AND HEP LOCKED PER POLICY. LUIS HOSE AND SCD'S IN PLACE. NO FURTHER NEEDS, CALL LIGHT IN REACH.
--- NOTE | 2020-05-23 03:45 | NUR ---
CALL LIGHT ANSWERED, pt UP SBA WITH FWW TO VOID AND HAVE BM. pt TOLERATED WELL AND STEADY ON FEET, RETURNED TO BED. SCD'S AND LUIS HOSE REMAIN IN PLACE. PRAVIN DRESSING UNCHANGED, GREEN LIGHT FLASHING. NO FURTHER NEEDS, pt WATCHING TV. CALL LIGHT IN REACH.
--- NOTE | 2020-05-23 06:16 | NUR ---
VS AND I&O'S COMPLETE, FRESH WATER GIVEN. SCHEDULED PAIN MED GIVEN FOR 1-2/10 PAIN, SEE EMAR. NO FURTHER NEEDS. CALL LIGHT IN REACH.
--- NOTE | 2020-05-23 07:20 | NUR ---
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 pts incision site draining yellow fluid, in moderate amounts since starting to work on his physical therapies. pt has had therapies stopped for the time being, pt able to get up to the chair and is SBA+FWW. pt currently in bed, breathing even and unlabored, table and call light within reach.
--- NOTE | 2020-05-23 09:00 | NUR ---
ASSESSMENT + MED PASS pt assessment completed at this time, VSS, pts got generalized edema from his hips down, slightly dim lung bases, and the PRAVIN dressing is intact, but is about half filled with yellow drainage, green light on PRAVIN device still on. pt up to chair at this time, watching TV with at chair side. pt reports 3/10 tolerable pain at this time. pt able to take all meds without difficulty. pt given coffee and fresh water at this time. pt denies further needs. table and call light within reach.
--- NOTE | 2020-05-23 10:00 | NUR ---
MED PASS + HEPARIN LOCK pt was getting his IV ABX after med pass this morning, now infusion is complete, PICC line assessed and heparin locked at this time. pt getting his scheduled tramadol now, able to take it without difficulty. pt also given his IV lasix as ordered by his P.A. pt denies further needs at this time. table and call light within reach.
--- NOTE | 2020-05-23 11:00 | NUR ---
RESPONDING TO CALL LIGHT pts urinal emptied at this time, pt was able to void 300mls of slightly orange urine. urine color could be due to the Rifampin. pt in chair, denies further needs at this time. table and call light within reach.
--- NOTE | 2020-05-23 11:58 | NUR ---
RESPONDING TO CALL LIGHT pts urinal emptied at this time, pt was able to void 700mls of slightly orange urine. urine color could be due to the Rifampin. pt in chair, denies further needs at this time. table and call light within reach.
--- NOTE | 2020-05-23 12:25 | NUR ---
ROUNDING pts urinal emptied. pt denies nausea and reports 3/10 tolerable pain at this time. pt having lunch and visiting with his while watching tv. pts dressing is still intact and PRAVIN device still flashing green light. dressing is about 2/3 saturated with yellow drainage at this time. pt denies further needs at this time, table and call light within reach.
--- NOTE | 2020-05-23 13:05 | NUR ---
ROUNDING pts urinal emptied. pt denies nausea and reports 3/10 tolerable pain at this time. pt still up to chair. pt encouraged to stand and move legs at the chair side with me present to help, pt refused. pt encouraged to use another pillow under him, pt refused. pts dressing is still intact and PRAVIN device still flashing green light. dressing is about 2/3 saturated with yellow drainage at this time. pt denies further needs at this time, table and call light within reach.
--- NOTE | 2020-05-23 13:15 | NUR ---
ROUNDING emptied pts urinal at this time. pt encouraged to stand and reposition, pt refused at this time. pt denies pain and nausea at this time. pt able to demonstrate proper use of the I.S. to 1400 x10 at this time. pt denies further needs. table and call light within reach.
--- NOTE | 2020-05-23 14:15 | NUR ---
ROUNDING emptied pts urinal at this time. pt encouraged to stand and reposition, pt refused at this time. pt denies pain and nausea at this time. pt denies further needs. table and call light within reach.
--- NOTE | 2020-05-23 15:00 | NUR ---
ROUNDING pts urinal emptied. pt denies nausea and reports 2/10 tolerable pain at this time. pt having lunch and visiting with his while watching tv. pts dressing is still intact though PRAVIN device is now flashing orange light. dressing is about 2/3 saturated with yellow drainage at this time. this RN to change PRAVIN dressing as soon as a replacement dressing is brought to the unit.pt denies further needs at this time, table and call light within reach.
--- NOTE | 2020-05-23 16:01 | NUR ---
PRAVIN DRESSING CHANGE pts PRAVIN device flashing orange light at this time. pts dressing still about 2/3 saturated with yellow/serous fluid. pt tolerated well, denies pain. pt able to demonstrate proper use of the I.S. to 1400 x10 at this time. pt up to the bathroom to void and have BM. pt back to chair. pt was able to walk from chair to bed, to toilet, to chair using SBA + FWW. pt in chair, reports 2/10 pain, no nausea, and no further needs at this time. table and call light within reach. at bedside.
--- NOTE | 2020-05-23 16:26 | NUR ---
pt PICC line heparin locked in both lumens at this time. pt has PICC line wrapped in a sleeve and coband to keep it from snagging or being pulled, pt had the PICC line pulled out a few days ago. currently lines are drawing back blood and flushing with ease. pt had PRAVIN dressing changed today at 1600, new dressing and new device with new batteries. pt was given 40mg lasix today to diurese some of the fluid from his lung bases and lower extremities (according to Dr Orellana' P.A.). pt has voided over 2000mls since this morning. pt tolerating a 60gCC diet well. pt A&O x4, pleasant and cooperative throughout my shift.
--- NOTE | 2020-05-23 17:00 | NUR ---
ROUNDING pt in chair, watching TV at this time. pt reports 2/10 tolerable pain, no nausea at this time. pt denies needs. table and call light within reach.
--- NOTE | 2020-05-23 18:00 | NUR ---
VITALS & Is&Os pts VSS. Is&Os recorded. pt reports 2/10 tolerable pain and no nausea at this time. table and call light within reach.
--- NOTE | 2020-05-23 19:36 | NUR ---
SHIFT REPORT FROM NURSE GOMEZ. PT IS UP IN CHAIR, ON CELL PHONE, WATCHING TV. DENIES NEEDS AT THIS TIME. CALL LIGHT WITHIN REACH.
--- NOTE | 2020-05-23 20:30 | NUR ---
CALL LIGHT ANSWERED. 1 PA TO THE BATHROOM FROM CHAIR. WALKER USED. PATIENT IS IN BED NOW. V/S AND I&O TAKEN AND RECORDED. NO OTHER NEED AT THIS TIME. CALL LIGHT AND SIDE TABLE WITHIN REACH.
--- NOTE | 2020-05-23 21:49 | NUR ---
CHARGE NOTE. pt AWAKE AND RESTING IN BED, PRIMARY RN AMANDA IN ROOM. pt APPEARS COMFORTABLE AND DENIES NEEDS OR CONCERNS, CALL LIGHT IN REACH.
--- NOTE | 2020-05-23 22:00 | NUR ---
IN ROOM FOR EVENING MEDS AND ASSESSMENT. PT LAYING IN BED WATCHING TV. PT REPORTS "DISCOMFORT" RATHER THAN PAIN SO CANNOT RATE. LEFT HIP EDEMA CONTINUES TO LEFT KNEE. PRAVIN DRESSING HALF SATURATED WITH SEROSANGUINOUS DRAINAGE. PRAVIN PUMP FLASHING GREEN. CMS INTACT. LUNG SOUNDS CLEAR AT THIS TIME. SCDS APPLIED; PT REFUSES CRYO UNIT. PT HAS QUESTIONS RE: PO ANTIBIOTICS/ HOME CARE WHICH ARE ANSWERED AT THIS TIME. PICC LINE FLUSHES EASILY AND BOTH LUMENS HAVE GOOD BLOOD RETURN. NO FURTHER CARE NEEDS AT THIS TIME. CALL LIGHT WITHIN REACH.
--- NOTE | 2020-05-24 00:25 | NUR ---
CHECKED ON PT. PT APPEARS TO BE SLEEPING WITH EYES CLOSED, EVEN BREATHING NOTED. CALL LIGHT, BEDSIDE TABLE AND URINAL WITHIN REACH. SCDS ON.
--- NOTE | 2020-05-24 03:02 | NUR ---
CHECKED ON PT. PT SLEEPING IN BED WITH EYES CLOSED, EVEN BREATHING NOTED. NO APPARENT SIGNS OF DISTRESS. CALL LIGHT WITHIN REACH.
--- NOTE | 2020-05-24 06:34 | NUR ---
IN ROOM FOR MORNING ASSESSMENT AND VITALS. PT IS AWAKE AND READING ON HIS PHONE. PT REPORTS NO PAIN AT THIS TIME. SCHEDULED MEDS GIVEN. PRAVIN DRESSING NEARLY ALL SATURATED WITH YELLOWISH, SEROSANGUINOUS FLUID. PRAVIN PUMP FLASHING ORANGE. VSS. URINE OUTPUT QS. LEFT HIP TO KNEE STILL EDEMATOUS WITH SOME PITTING BEHIND L KNEE NOTED. WILL CHECK IN WITH DR BATES/DAVE RE: DRESSING CHANGE AND IF THEY WOULD LIKE TO SEE INCISION AREA DURING DRESSING CHANGE. NO FURTHER NEEDS AT THIS TIME. CALL LIGHT WITHIN REACH.
--- NOTE | 2020-05-24 09:00 | NUR ---
Patient sitting up in chair, alert and oriented x3. Patient reports left hip/leg pain is minimal; reports 2/10 on pain scale. PRAVIN dressing is intact, moderate drainage noted to dressing; yellow/green in color. PRAVIN is flashing orange at this time. Per report, provider notified this morning of dressing. Order to leave dressing as is so the provider can assess this afternoon when they see patient. CMS intact. PICC line intact, hep locked at this time. No needs. Call light within reach.
--- NOTE | 2020-05-24 10:00 | NUR ---
SPOKE WITH PATIENT IN ROOM. HE STATES HE DOES NOT KNOW IF HE IS GOING HOME TODAY. "I KEEP LEAKING". DISCUSSED PLAN FOR HOME INFUSION AND HOME HEALTH. DISCUSSED NOTES REFLECT THAT HOME HEALTH WILL ADMIT HIM ON SUNDAY. ASKED IF HE HAS HAD TEACHING ON FLUSHING PICC LINE, WHAT TO WATCH FOR AT HOME AND WHO TO CONTACT. HE STATES HE HAS WATCHED THEM FLUSH IT BUT HASN'T HAD TEACHING DIRECTLY. DISCUSSED THAT WE NEED TO MAKE SURE HE HAS ALL THIS BEFORE DISCHARGE. ASKED IF ANY PACKAGES HAVE BEEN DELIVERED AT HOME FROM [facility] YET. HE STATES HE WILL CHECK WITH HIS . SPOKE WITH CHARGE NURSE ABOUT TEACHING NEEDING DONE FOR PATIENT BEFORE DISCHARGE.
--- NOTE | 2020-05-24 11:10 | NUR ---
SPOKE WITH [facility]. THEY COULD NOT FIND ORDERS FAXED ON SUNDAY. CONFIRMED FAX NUMBER [phone]. REFAXED ORDER,CLINICALS. FAX CONFIRMATION RECEIVED 05/24/20 [id number].
--- NOTE | 2020-05-24 14:31 | NUR ---
PT WAS RESTING IN CHAIR, ON COUCH BESIDE PT. HE COMMENTED THAT HE IS WAITING FOR DR BATES. FLOYD SLAUGHTER, WILL FOLLOW
--- NOTE | 2020-05-24 14:38 | NUR ---
RECEIVED MESSAGE FROM [facility] TO CALL BACK [phone]. RETURNED CALL. SPOKE WITH STEPHANIE. SHE STATES THEY RECEIVED ORDER. SHE STATES THEY RAN HIS INSURANCE AND HE WOULD HAVE A COPAY OF $878/WEEK. SHE STATES OUTPATIENT INFUSION WOULD BE COVERED, BUT HOME INFUSION HAS THE COPAY. TOLD HER NOT TO SEND ANYTHING UNTIL I SPEAK WITH PATIENT. SPOKE WITH PATIENT IN ROOM, IS PRESENT. DISCUSSED PHONE CALL ABOVE. THEY STATE THIS MIGHT BE A PROBLEM. THEY WANT TO THINK ABOUT THIS, STATES "I NEED TO RETHINK COMING IN DAILY". DISCUSSED TO LET US KNOW THIS AFTERNOON OR EARLY IN AM. UPDATED STAFF.
--- NOTE | 2020-05-24 15:19 | NUR ---
PATIENT IN BED RESTING, IN ROOM. VITALS AND I&O'S CHARTED. CALL LIGHT IN REACH. NO FURTHER NEEDS AT THIS TIME.
--- NOTE | 2020-05-24 15:59 | NUR ---
CONSULT RECEIVED. PATIENT STATES HIS APPETITE IS [employer]. I ASKED HIM IF HE COULD TELL ME SOME PROTEIN FOODS AND HE SAID NO, HE WANTED ME TO TELL HIM. EXPLAINED WHAT FOODS CONTAIN PROTEIN. HE HAD A HAM & CHEESE OMLET THIS AM, SOUP FOR LUNCH, AND WILL HAVE AN OPEN-FACED TURKEY SANDWICH FOR DINNER. HE SAID AT THE [facility] THEY SENT HIM A DRINK AT EACH MEAL (BOOST) AND HE IS FINE WITH US SENDING THE LOWER SUGAR ENSURE WITH MEALS WHILE HE IS HERE. ESTIMATED PROTEIN NEEDS: 1.0-1.2 GM/KG CBW = 99-120 GM PROTEIN PER DAY. WILL CONTINUE TO MONITOR.
--- NOTE | 2020-05-24 18:56 | NUR ---
Patient reports doing well, a&ox4. Patient reports minimal left leg/hip pain, /. Spica dressing remains CDI. CMS intact. LUIS hose and scd's in place. Patient remains on bedrest. Call light within reach.
--- NOTE | 2020-05-24 19:32 | NUR ---
SHIFT REPORT FROM NURSE VIRGEN. PT SLEEPING ON BACK IN BED,NO APPARENT SIGNS OF DISTRESS. WHITE BOARD UPDATED. CALL LIGHT WITHIN REACH.
--- NOTE | 2020-05-24 22:15 | NUR ---
IN ROOM FOR MEDS AND ASSESSMENT. PT REPORTS NO PAIN, SPICA CDI; NO DRAINAGE NOTED. SCDS ON, PT ENCOURAGED TO USE I.S. SINCE LESS MOBILE D/T BED REST ORDERS. URINE OUTPUT CONTINUES TO BE STRONG, 2 URINALS AT BEDSIDE. PICC LINE FLUSHES WELL AND BOTH LUMENS HAVE GOOD BLOOD RETURN. WATER CUP REFILLED PER REQUEST. NO FURTHER NEEDS AT THIS TIME. CALL LIGHT WITHIN REACH.
--- NOTE | 2020-05-25 01:00 | NUR ---
BED ALARM ALARMING. PT HAD TURNED TO RIGHT SIDE AND MOTION SET OFF. PT DENIES NEEDS AT THIS TIME. CALL LIGHT WITHIN REACH.
--- NOTE | 2020-05-25 03:01 | NUR ---
CHECKED IN ON PT; EMPTIED URINALS. SPICA BANDAGE CHECKED; CDI. SCHEDULED TRAMADOL ADMINISTERED. NO FURTHER NEEDS AT THIS TIME. CALL LIGHT WITHIN REACH, BED ALARM ON.
--- NOTE | 2020-05-25 06:22 | NUR ---
IN ROOM FOR MORNING ASSESSMENT, VITALS, BLOODDRAW. PT AWAKE AND ALERT. SPICA DRESSING REMAINS CDI. NO DRAINAGE NOTED. PT REPORTS PAIN IN KNEES AND SCHEDULED TYLENOL IS ADMINISTERED. VSS. CMS INTACT. LUNGS DIM BUT CLEAR; ENCOURAGED I.S. BOWEL TONES ACTIVE. WATER REFILLED. MORNING LABS DRAWN EASILY OUT OF PICC LINE. FLUSHED WITH 10ML NS. CALL LIGHT WITHIN REACH. NO FURTHER NEEDS AT THIS TIME.
--- NOTE | 2020-05-25 06:35 | NUR ---
BED ALARM SOUNDING, PT FOUND SITTING ON EDGE OF BED. STATES HE CAN'T GET UP, JUST WANTED TO SIT UP FOR BIT. CALL LIGHT WITHIN REACH. NO NEEDS.
--- NOTE | 2020-05-25 07:25 | NUR ---
Patient resting in bed, alert and oriented x3. Spica dressing CDI at this time. LLE has notable edema, LUIS hose and SCD's intact. Patient reports pain is tolerable, 2/10 pain level reported. Call light within reach. No needs at this time.
--- NOTE | 2020-05-25 09:05 | NUR ---
Patient reported his left inner thigh was feeling really tight. Dr. Orellana at bedside at this time. Verbal order obtained to cut inner left thight dressing then place florentin wrap over. Left inner thigh dressing cut then florentin wrap placed at this time. ABD under pica was noted to be saturated and coming out of spica dressing. Removed saturated abd and replaced with new one. Drainage on abd is serous without notable smell. Spica is otherwise intact and functioning well. CMS intact. Patient tolerated well.
--- NOTE | 2020-05-25 10:04 | NUR ---
PATIENT IN BED RESTING, AT BEDSIDE. VITALS AND I&O'S CHARTED. FRESH WATER GIVEN. CALL LIGHT IN REACH. NO FURTHER NEEDS AT THIS TIME.
--- NOTE | 2020-05-25 10:10 | NUR ---
Spoke with Claus. He is resting in bed and is aware he is to stay in bed, except to go to the bathroom. Discussed IV antibiotics and he now plans to come in as OP daily as there was a large copay for home IV med. Pt is anxious to discharge as his son and grandchild are visiting from [place]. They will be leaving in a few days. Pt denies other needs. Will fax orders to [facility] when pt is ready for dc, for IV antibiotics and schedule.
--- NOTE | 2020-05-25 10:20 | NUR ---
Spoke with Elijah. He plans on dc to home when he is discharged. He has worked with our CHW, Ursula Maria in the past and would like her to call him. He would like some help in the home and informed I can give him a brochure for [employer]. We discussed all help is paid out of pocket, he is aware of this. States he needs some light housekeeping only. We also discussed [employer], but this program is not currently running.
--- NOTE | 2020-05-25 12:35 | NUR ---
Patient in bed resting at this time, a&ox4. Patient reports his pain is tolerable at this time. SPICA dressing CDI at this time. CMS intact, priyanka hose and scd's in place. Patient has no reported need. at bedside visiting. Call light within reach.
--- NOTE | 2020-05-25 14:33 | NUR ---
PT SITTING UP IN BED, TV ON AND TALKING ON PHONE. PT REQUESTED I COME BACK LATER. WILL FOLLOW NEEDED
--- NOTE | 2020-05-25 18:08 | NUR ---
PATIENT IN BED RESTING. FRESH WATER GIVEN. VITALS AND I&O'S CHARTED. CALL LIGHT IN REACH. NO FURTHER NEEDS AT THIS TIME.
--- NOTE | 2020-05-25 18:35 | NUR ---
Patient resting in bed, a&ox3. Respirations even and non labored. ABD replaced under spica dressing to left hip. Drainage serous, no smell noted. SPICA intact, small amound of serous shadowing to small portion of abdominal binder. CMS intact. Patient reports good pain tolerance. SCD'S and priyanka hose intact.
--- NOTE | 2020-05-25 19:21 | NUR ---
RECEIVED REPORT FROM DAY SHIFT RN. PATIENT IS RESTING IN BED WATCHING TV. PATIENT DENIES ANY PAIN. NO NEEDS NOTED. CALL LIGHT IN REACH.
--- NOTE | 2020-05-25 21:30 | NUR ---
PATIENT ASSESMENT COMPLETED. PATIENTS VITALS TAKEN AND RECORDED. INTAKE AND OUPUT RECORDED. PATIENT RATES PAIN AT A 2/10. PATIENT GIVEN SCHEDULED PAIN MEDICATION. PATIENTS EVENING MEDICATIONS GIVEN PER ORDER. PATIENTS PICC LINE HEP LOCKED. PATIENTS DRESSING REINFORCED IT HAD SLID UP ABOVE HIS NAVEL. PATIENTS DRESSING HAS A SMALL AMOUNT OF CLEAR DRAINAGE NOTED. PATIENTS ICE WATER REFILLED. NO FURTHER NEEDS NOTED. CALL LIGHT AND BELONGINGS WITHIN REACH.
--- NOTE | 2020-05-25 23:07 | NUR ---
PATIENT IS RESTING IN BED WITH EYES CLOSED, RR 17. CALL LIGHT IN REACH. SCDS IN USE.
--- NOTE | 2020-05-26 01:05 | NUR ---
PATIENT IS RESTING IN BED WITH HIS EYES CLOSED, RR 17. CALL LIGHT IN REACH.
--- NOTE | 2020-05-26 02:55 | NUR ---
PATIENT IS RESTING IN BED WITH EYES CLOSED, RR 18. PATIENT WISHES TO NO BE WOKE UP FOR HIS SCHEDULED PAIN MEDICATION AT 0200. WILL LET PATIENT REST.
--- NOTE | 2020-05-26 04:12 | NUR ---
PATIENT IS RESTING IN BED WITH EYES CLSOED, RR 19. TELE #5 READINGS ARE WNL. CALL LIGHT IN REACH.
--- NOTE | 2020-05-26 05:49 | NUR ---
PATIENTS MORNING MEDICATIONS GIVEN PER ORDER. PATIENT RATES PAIN AT A 2/10. SCHEDULED PAIN MEDICATION GIVEN PER ORDER. PATIENTS MORNING MEDICATIONS GIVEN PER ORDER. PATIENTS VITALS TAKEN AND RECORDED. INTAKE AND OUPUT RECORDED. MODERATE AMOUNT OF DRAINAGE NOTED ON DRESSING. PATIENTS PICC FLUSHES WELL. PATIENT HAS REMOVED TEDHOSE. EDUCATED PATIENT ON IMPORTANCE OF WEARING TEDHOSE. PATIENT REFUSES TO PUT THEM BACK ON STATING "THEY BOTHER ME AND KEPT ME UP ALL NIGHT". PATIENT IS NO RA. PICC IS HEPLOCKED. NO FURTHER NEEDS NOTED. CALL LIGHT IN REACH.
--- NOTE | 2020-05-26 07:55 | NUR ---
REPORT RECEIVED. PT SITTING UP ON THE EDGE OF THE BED EATING BREAKFAST. DENIES DISCOMFORTS OR NEEDS OF AT THIS TIME. CALL LIGHT AND NEEDED ITEMS IN REACH. PT AGREES HE UNDERSTANDS HE IS ON BEDREST AND SHOULD NOT GET UP FROM THE BED AT ALL
--- NOTE | 2020-05-26 09:03 | NUR ---
ABD PADS AT HIP ARE SATURATED SERO-SANG, COBAN HAS ROLLED DOWN AND IS TIGHT AROUND UPPER THIGH, SAMREEN WRAP HAS SLIPPED DOWN THE LEG. HAD PT STAND WHILE FRESH ABD PADS WERE PLACED AND BINDER AND COBAN APPLIED FOR PRESSURE TO AREA. WOUND IS WELL APPROXIMATED BUT LEAKS SEVERAL DROPS ON THE FLOOR PT STANDS FOR DRESSING. PT RETURNS TO RESTING SUPINE DRESSING IS SNUGGLY IN PLACE.
[2020-05-26] MEDS ORDERED: RIFAMPIN300 MG PO (10:47)
[2020-05-26] MEDS ORDERED: OXYCODONE HCL5 MG PO (10:47)
[2020-05-26] MEDS ORDERED: GABAPENTIN300 MG PO (10:48)
--- NOTE | 2020-05-26 11:52 | NUR ---
DRESSING APPLIED FOR DC PER DR BATES INSTRUCTION. DEMONSTRATED HOW TO APPLY BINDER REVIEWED REASON FOR IT WITH THIS PT. ENCOURAGED HIM TO RE-APPLY IF IT BECOMES DISLODGED. UNDERSTANDING VERBALIZED
== END 2020-05-26 12:40 | disposition home or self-care (01) | DRG 466 ==
LOC: ED 09:59 → MS 10:01 → CCU 11:34 → MS 05-16 21:10
PROVIDERS: ADMIT Specialist; ATTEND Specialist
PROC: 0SPS0JZ Removal of Synthetic Substitute from Left Hip Joint, Femoral Surface, Open Approach (ICD-10-PCS; 2020-05-14)
PROC: 0SUE09Z Supplement Left Hip Joint, Acetabular Surface with Liner, Open Approach (ICD-10-PCS; 2020-05-14)
PROC: 02HV33Z Insertion of Infusion Device into Superior Vena Cava, Percutaneous Approach (ICD-10-PCS; 2020-05-14)
PROC: 0SPB09Z Removal of Liner from Left Hip Joint, Open Approach (ICD-10-PCS; principal; 2020-05-14 12:30)
PROC: 0SRS03Z Replacement of Left Hip Joint, Femoral Surface with Ceramic Synthetic Substitute, Open Approach (ICD-10-PCS; 2020-05-14 12:30)
DX: T84.52XA Infection and inflammatory reaction due to internal left hip prosthesis, initial encounter (principal); A41.01 Sepsis due to Methicillin susceptible Staphylococcus aureus; R65.20 Severe sepsis without septic shock; N17.9 Acute kidney failure, unspecified; E87.1 Hypo-osmolality and hyponatremia; I47.1 Supraventricular tachycardia; Z20.822 Contact with and (suspected) exposure to COVID-19; D64.9 Anemia, unspecified; I10 Essential (primary) hypertension; E11.9 Type 2 diabetes mellitus without complications; J84.10 Pulmonary fibrosis, unspecified; Z88.1 Allergy status to other antibiotic agents; Z79.899 Other long term (current) drug therapy; Z79.84 Long term (current) use of oral hypoglycemic drugs; Z79.1 Long term (current) use of non-steroidal anti-inflammatories (NSAID); Z79.82 Long term (current) use of aspirin; Z79.891 Long term (current) use of opiate analgesic
CPT/HCPCS: 01210; 36415; 36430; 36569; 71045; 72158; 72170; 74177; 80048; 80053; 80202; 81001; 83036; 83605; 83735; 85025; 85651; 86850; 86900; 86901; 86920; 87040; 87070; 87075; 87077; 87088; 87186; 87205; 93005; 93010; 93306; 97110; 97116; 97140; 97162; 97530; 99284; A9577; C1751; C1776; C9803; J0131; J0330; J0456; J0696; J1100; J1815; J1885; J1940; J2001; J2250; J2270; J2405; J2543; J2700; J2704; J2765; J3010; J3370; J3475; J7060; J7121; P9016; Q9967; U0003